=== PATIENT | male | born 1925 | race Caucasian/White ===

== ENCOUNTER 2016-05-29 14:04 | Inpatient (IN) | payer MEDICARE ==
--- NOTE | 2016-05-29 15:01 | ER Document Report ---
ED General - General Stated Complaint: DIFFICULTY BREATHING Notes: This is an 89-year-old male from home where he lives with his , reportedly having cough, altered mental status, decreased by mouth intake over the past several days. Son went to check on him and found him to be in respiratory distress and called EMS. Room air oxygen saturation was 82% initially responded well to nasal cannula oxygen TRAVEL OUTSIDE OF THE [place] IN LAST 30 DAYS: No - Related Data Allergies/Adverse Reactions: No Known Allergies Allergy (Unverified 03/13/15 15:37) Past Medical History - Social History Smoking Status: Unknown if Ever Smoked Frequency of alcohol use: None Drug Abuse: None Lives with: Spouse/Significant other Family History: Reviewed & Not Pertinent Psychiatric Medical History: Reports: Hx Depression Past Surgical History: Reports: Hx Appendectomy, Hx Orthopedic Surgery, Hx Tonsillectomy - Immunizations Hx Diphtheria, Pertussis, Tetanus Vaccination: Yes Review of Systems - Review of Systems Constitutional: Chills, Fever, Malaise EENT: denies: Difficulty swallowing Cardiovascular: denies: Chest pain, Syncope Respiratory: Cough, Short of breath, Sputum Gastrointestinal: Nausea. denies: Abdominal pain, Vomiting Genitourinary: Incontinence. denies: Flank pain Skin: denies: Rash Hematologic/Lymphatic: denies: Swollen glands Neurological/Psychological: denies: Numbness, Tingling Physical Exam - Vital signs Vitals: Resp 30 H 05/29/16 15:02 - General General appearance: Alert In distress: Mild - frail, frequent congested sounding cough, ill appearing - HEENT Head: Normocephalic Conjunctiva: Normal Nasal: Normal Mouth/Lips: Normal Mucous membranes: Dry Pharynx: Normal Neck: Normal - Respiratory Respiratory status: Tachypnea Breath sounds: Decreased air movement, Rhonchi - Cardiovascular Rhythm: Regular, Tachycardia - Abdominal Inspection: Normal Bowel sounds: Normal Tenderness: Nontender - Back Back: Normal - Extremities General upper extremity: No: Edema General lower extremity: No: Edema - Neurological Cognition: Normal Motor strength normal: LUE, RUE, LLE, RLE - Psychological Associated symptoms: Normal affect - Skin Skin Temperature: Warm Skin Moisture: Dry Skin Color: Normal Course - Re-evaluation Re-evalutation: 05/29/16 18:[address] Lyle who will admit, IMCU - Vital Signs Vital signs: Temp Pulse Resp BP Pulse Ox 31 H 130/61 H 96 05/29/16 16:02 05/29/16 16:02 05/29/16 15:53 - Laboratory Result Diagrams: 05/29/16 14:53 05/29/16 14:53 Laboratory results interpreted by me: 05/29/16 05/29/16 05/29/16 14:53 14:53 14:53 WBC 28.7 H RBC 4.01 L Hgb 12.0 L MCHC 31.3 L RDW 14.4 H Seg Neuts % (Manual) 83 H Lymphocytes % (Manual) 8 L Abs Neuts (Manual) 24.7 H Carbonic Acid ABG pCO2 ABG pO2 ABG Total CO2 Potassium 3.2 L BUN 26 H Glucose 132 H Lactic Acid 3.9 H Total Bilirubin 1.7 H ALT 19 L Creatine Kinase 321 H Urine Protein 05/29/16 05/29/16 15:05 15:39 WBC RBC Hgb MCHC RDW Seg Neuts % (Manual) Lymphocytes % (Manual) Abs Neuts (Manual) Carbonic Acid 0.92 L ABG pCO2 30.4 L ABG pO2 65.2 L ABG Total CO2 21.8 L Potassium BUN Glucose Lactic Acid Total Bilirubin ALT Creatine Kinase Urine Protein 30 H Discharge - Discharge Clinical Impression: Sepsis Qualifiers: Sepsis type: sepsis due to unspecified organism Qualified Code(s): A41.9 - Sepsis, unspecified organism Pneumonia Qualifiers: Pneumonia type: due to unspecified organism Laterality: right Lung location: unspecified part of lung Qualified Code(s): J18.9 - Pneumonia, unspecified organism Condition: Fair Disposition: ADMITTED INPATIENT Admitting Provider: Hospitalist Unit Admitted: [facility]
[2016-05-29] MEDS ORDERED: NORMAL SALINE 1000 ML 1,000 ML IV ONE ×2 (15:16→16:06)
[2016-05-29] MEDS ORDERED: CEFTRIAXONE 1 GM/D5W RTU 50 ML IV ONE (15:16)
[2016-05-29 15:31] LABS: HEMATOCRIT 38.4 % (37.9-51.0); HGB HCT DIFFERENCE -2.4; MEAN CORPUSCULAR HGB CONC 31.3 g/dL (32.0-36.0); MEAN CORPUSCULAR VOLUME 96 fl (80-97); RED BLOOD COUNT 4.01 10^6/uL (4.35-5.55); RED CELL DISTRIBUTION WIDTH 14.4 % (11.5-14.0); WHITE BLOOD COUNT 28.7 10^3/uL (4.0-10.5)
[2016-05-29 15:37] LABS: APPEARANCE,URINE CLEAR; BILIRUBIN,URINE NEGATIVE (NEGATIVE); GLUCOSE, URINE NEGATIVE (NEGATIVE); KETONES,URINE NEGATIVE (NEGATIVE); LEUKOCYTE ESTERASE,URINE NEGATIVE (NEGATIVE); NITRITE,URINE NEGATIVE (NEGATIVE); PROTEIN,URINE 30 mg/dL (NEGATIVE); URINE SPECIFIC GRAVITY 1.021; UROBILINOGEN,URINE NEGATIVE mg/dL (<2.0)
[2016-05-29 15:39] LABS: ALANINE AMINOTRANSFERASE 19 U/L (21-72); ALBUMIN 4.3 g/dL (3.5-5.0); ALKALINE PHOSPHATASE 78 U/L (38-126); ANION GAP 17 (5-19); ASPARTATE AMINO TRANSFERASE 29 U/L (17-59); BILIRUBIN,TOTAL 1.7 mg/dL (0.2-1.3); BLOOD UREA NITROGEN 26 mg/dL (7-20); CALCIUM 9.7 mg/dL (8.4-10.2); CARBON DIOXIDE 24 mmol/L (22-30); CHLORIDE 103 mmol/L (98-107); CREATINE KINASE 321 U/L (55-170); CREATININE RESULT 1.11 mg/dL (0.52-1.25); GLUCOSE 132 mg/dL (75-110); POTASSIUM 3.2 mmol/L (3.6-5.0); SODIUM 143.8 mmol/L (137-145); TOTAL PROTEIN 6.9 g/dL (6.3-8.2)
[2016-05-29 15:49] LABS: CREATINE KINASE MB 1.24 ng/mL (<4.55)
--- NOTE | 2016-05-29 15:50 | EKG REPORT ---
SEVERITY:- ABNORMAL ECG - SINUS TACHYCARDIA LAD, CONSIDER LEFT ANTERIOR FASCICULAR BLOCK CONSIDER ANTERIOR INFARCT REPOLARIZATION ABNORMALITY, PROB RATE RELATED : Confirmed by: Raiza Tavarez 29-May-2016 15:49:15
[2016-05-29 15:54] LABS: ARTERIAL BLOOD BASE EXCESS -2.1 mmol/L
[2016-05-29 15:55] LABS: BAND NEUTROPHILS % (MANUAL) 3 % (3-5); BASOPHILS % (MANUAL) 0 % (0-2); EOSINOPHILS % (MANUAL) 0 % (0-6); LYMPHOCYTES % (MANUAL) 8 % (13-45); TOTAL CELLS COUNTED 100
[2016-05-29 15:56] LABS: HYPOCHROMASIA SLIGHT; PLATELET CLUMPS PRESENT
[2016-05-29 15:58] LABS: TROPONIN I < 0.012 ng/mL
[2016-05-29] MEDS ORDERED: AZITHROMYCIN INJ 500 MG VIAL IV ONE (16:27)
[2016-05-29] MEDS ORDERED: ACETAMINOPHEN 325 MG TABLET PO PRN (17:12)
--- NOTE | 2016-05-29 17:28 | PDOC H&P ---
History of Present Illness Admission Date/PCP: 05/29/2016 Dr. Jang Patient complains of: Shortness of breath fever and cough History of Present Illness: VON RANGEL is a 89 year old male from home where he lives with his , reportedly having cough, altered mental status, decreased by mouth intake over the past several days. Son went to check on him and found him to be in respiratory distress and called EMS. Room air oxygen saturation was 82% initially responded well to nasal cannula oxygen Upon evaluation in the ED he was diagnosed of right lower lobe pneumonia, sepsis , hypoxemic respiratory failure, and was subsequently admitted to [facility] under hospitalist service Past Medical History Endocrine Medical History: Reports: Hypothyroidism Musculoskeltal Medical History: Reports: Other - Neuropathy lower extremities and ambulatory dysfunction Psychiatric Medical History: Reports: Depression Past Surgical History Past Surgical History: Reports: Appendectomy, Orthopedic Surgery, Tonsillectomy Social History Information Source: Relative - Wander Weiss Lives with: Spouse/Significant other Smoking Status: Former Smoker - Quit smoking 32 years ago Frequency of Alcohol Use: None Hx Recreational Drug Use: No - Advance Directive Resuscitation Status: Do Not Resuscitate Surrogate healthcare decision maker:: Son Rohith Rangel Family History Family History: Reviewed & Not Pertinent Parental Family History Reviewed: No Children Family History Reviewed: No Sibling(s) Family History Reviewed.: No Medication/Allergy Home Medications: Cephalexin [Keflex] 250 mg PO QID #20 capsule 12/11/15 Duloxetine HCl [Duloxetine HCl] 12/11/15 Gabapentin [Gabapentin] 12/11/15 Levothyroxine Sodium 12/11/15 Tamsulosin HCl [Tamsulosin HCl] 12/11/15 Allergies/Adverse Reactions: No Known Allergies Allergy (Unverified 03/13/15 15:37) Review of Systems Constitutional: PRESENT: anorexia, chills, fever(s) Cardiovascular: ABSENT: as per HPI, chest pain, dyspnea on exertion, edema, orthropnea, palpitations, other Respiratory: PRESENT: cough, dyspnea, sputum Gastrointestinal: PRESENT: other - Anorexia no abdominal pain Genitourinary: ABSENT: as per HPI, difficulty urinating, dysuria, hematuria, nocturia, other Musculoskeletal: PRESENT: other - Ambulatory dysfunction usually walks with a walker Has been laying on the couch for the last couple days Integumentary: ABSENT: as per HPI, diaphoresis, erythema, lesions, pruritus, rash, wounds, other Neurological: PRESENT: confusion - According to son was confused today ;usually extremely sharp alert still drives his car, weakness - Generalized Psychiatric: ABSENT: as per HPI, anxiety, depression, hallucinations, homidical ideation, suicidal ideation, other Endocrine: ABSENT: as per HPI, cold intolerance, flushing, heat intolerance, menstrual abnormalities, polydipsia, polyphagia, polyuria, other Allergic/Immunologic: ABSENT: as per HPI, seasonal rhinorrhea, other Physical Exam Vital Signs: Temp Pulse Resp BP Pulse Ox 31 H 130/61 H 96 05/29/16 16:02 05/29/16 16:02 05/29/16 15:53 General appearance: PRESENT: mild distress, thin Head exam: PRESENT: atraumatic, normocephalic Eye exam: PRESENT: conjunctiva pink, EOMI, PERRLA. ABSENT: scleral icterus Neck exam: ABSENT: carotid bruit, JVD, lymphadenopathy, thyromegaly Respiratory exam: PRESENT: tachypnea. ABSENT: accessory muscle use, prolonged expiratory phas, wheezes Cardiovascular exam: PRESENT: tachycardia - 1 just be just 5 minutes from admitting old man with pneumonia that morning is 89 and he has a white count of 28,000 is not good Pulses: PRESENT: normal dorsalis pedis pul Vascular exam: PRESENT: normal capillary refill - normal. GI/Abdominal exam: PRESENT: normal bowel sounds, soft. ABSENT: distended, guarding, mass, organolmegaly, rebound, tenderness Extremities exam: PRESENT: full ROM. ABSENT: calf tenderness, clubbing, pedal edema Neurological exam: PRESENT: awake, other - Somewhat confused looks very ill Skin exam: ABSENT: abrasion, cyanosis, dry, erythema, intact, jaundice, mottled , normal color, pallor, petechiae, rash, skin tears, urticaria, vesicles, warm, other Results Laboratory Results: 05/29/16 14:53 05/29/16 14:53 05/29/16 05/29/16 05/29/16 14:53 14:53 14:53 WBC 28.7 H RBC 4.01 L Hgb 12.0 L Hct 38.4 MCV 96 MCH 30.0 MCHC 31.3 L RDW 14.4 H Plt Count 219 Seg Neutrophils % Not Reportable Lymphocytes % Not Reportable Monocytes % Not Reportable Eosinophils % Not Reportable Basophils % Not Reportable Absolute Neutrophils Not Reportable Absolute Lymphocytes Not Reportable Absolute Monocytes Not Reportable Absolute Eosinophils Not Reportable Absolute Basophils Not Reportable Carbonic Acid HCO3/H2CO3 Ratio ABG pH ABG pCO2 ABG pO2 ABG HCO3 ABG O2 Saturation ABG Base Excess FiO2 Sodium 143.8 Potassium 3.2 L Chloride 103 Carbon Dioxide 24 Anion Gap 17 BUN 26 H Creatinine 1.11 Est GFR ( Amer) > 60 Est GFR (Non-Af Amer) > 60 Glucose 132 H Lactic Acid 3.9 H Calcium 9.7 Total Bilirubin 1.7 H AST 29 ALT 19 L Alkaline Phosphatase 78 Total Protein 6.9 Albumin 4.3 Urine Color Urine Appearance Urine pH Ur Specific [place] Urine Protein Urine Glucose (UA) Urine Ketones Urine Blood Urine Nitrite Ur Leukocyte Esterase Urine WBC (Auto) Urine RBC (Auto) 05/29/16 05/29/16 15:05 15:39 WBC RBC Hgb Hct MCV MCH MCHC RDW Plt Count Seg Neutrophils % Lymphocytes % Monocytes % Eosinophils % Basophils % Absolute Neutrophils Absolute Lymphocytes Absolute Monocytes Absolute Eosinophils Absolute Basophils Carbonic Acid 0.92 L HCO3/H2CO3 Ratio 22:1 ABG pH 7.45 ABG pCO2 30.4 L ABG pO2 65.2 L ABG HCO3 20.8 ABG O2 Saturation 94.0 ABG Base Excess -2.1 FiO2 2L Sodium Potassium Chloride Carbon Dioxide Anion Gap BUN Creatinine Est GFR ( Amer) Est GFR (Non-Af Amer) Glucose Lactic Acid Calcium Total Bilirubin AST ALT Alkaline Phosphatase Total Protein Albumin Urine Color YELLOW Urine Appearance CLEAR Urine pH 6.0 Ur Specific [place] 1.021 Urine Protein 30 H Urine Glucose (UA) NEGATIVE Urine Ketones NEGATIVE Urine Blood NEGATIVE Urine Nitrite NEGATIVE Ur Leukocyte Esterase NEGATIVE Urine WBC (Auto) 1 Urine RBC (Auto) 1 05/29/16 05/29/16 14:53 14:53 Creatine Kinase 321 H CK-MB (CK-2) 1.24 Troponin I < 0.012 EKG Comments: SINUS TACHYCARDIA [CLAFB] . LAD, CONSIDER LEFT ANTERIOR FASCICULAR BLOCK [AMI41] . CONSIDER ANTERIOR INFARCT [REPRR] . REPOLARIZATION ABNORMALITY Impressions: Chest X-Ray 05/29/16 15:15 IMPRESSION: Patchy changes of the right lung field concerning for infiltrate. Assessment & Plan - Diagnosis (1) Metabolic encephalopathy Is this a current diagnosis for this admission?: YesPlan: With confusion secondary to status sepsis Patient is not agitated Supportive treatment (2) Pneumonia Qualifiers: Pneumonia type: due to unspecified organism Laterality: right Lung location: unspecified part of lung Qualified Code(s): J18.9 - Pneumonia, unspecified organism Is this a current diagnosis for this admission?: YesPlan: Likely to be pneumococcal pneumonia as the white blood count is so high We will get influenza a and B screen (3) Sepsis Qualifiers: Sepsis type: sepsis due to unspecified organism Qualified Code(s): A41.9 - Sepsis, unspecified organism Is this a current diagnosis for this admission?: YesPlan: Secondary to pneumonia ; noted that the white blood count is over 20,000 Patient is not hypotensive Continue hydration with ceftriaxone and azithromycin (4) Acute hypoxemic respiratory failure Is this a current diagnosis for this admission?: YesPlan: Secondary to pneumonia O2 supplementation Mucinex nebs flutter valve if possible - Time Time Spent with patient: Admit to IMCU as inpatient Time Spent: 50 to 70 Minutes - Inpatient Certification Based on my medical assessment, after consideration of the patient's comorbidities, presenting symptoms, or acuity I expect that the services needed warrant INPATIENT care.: Yes I certify that my determination is in accordance with my understanding of Medicare's requirements for reasonable and necessary INPATIENT services [42 CFR 412.3e].: Yes
[2016-05-29] MEDS ORDERED: ENOXAPARIN SODIUM INJ 40 MG/0.4 ML DISP.SYRIN SUBCUT ONE (19:30)
[2016-05-29] MEDS: IPRATROPIUM/ALBUTEROL 0.5-2.5 MG/3 ML AMPUL NEB SCH (20:03)
[2016-05-29] MEDS: GUAIFENESIN 600 MG TABLET.SA PO SCH (20:46)
[2016-05-29] MEDS: FAMOTIDINE 20 MG TABLET PO SCH (20:46)
[2016-05-29] MEDS: NORMAL SALINE 1000 ML 1,000 ML IV PRN (20:47)
[2016-05-30 04:26] LABS: HEMATOCRIT 32.8 % (37.9-51.0); HEMOGLOBIN 10.5 g/dL (13.5-17.0); HGB HCT DIFFERENCE -1.3; MEAN CORPUSCULAR HEMOGLOBIN 30.3 pg (27.0-33.4); MEAN CORPUSCULAR HGB CONC 32.1 g/dL (32.0-36.0); MEAN CORPUSCULAR VOLUME 95 fl (80-97); RED BLOOD COUNT 3.47 10^6/uL (4.35-5.55); WHITE BLOOD COUNT 24.5 10^3/uL (4.0-10.5)
[2016-05-30 04:48] LABS: ALANINE AMINOTRANSFERASE 26 U/L (21-72); ALBUMIN 3.6 g/dL (3.5-5.0); ALKALINE PHOSPHATASE 59 U/L (38-126); ANION GAP 13 (5-19); ASPARTATE AMINO TRANSFERASE 25 U/L (17-59); BILIRUBIN,TOTAL 0.8 mg/dL (0.2-1.3); BLOOD UREA NITROGEN 26 mg/dL (7-20); CALCIUM 8.8 mg/dL (8.4-10.2); CARBON DIOXIDE 24 mmol/L (22-30); CHLORIDE 107 mmol/L (98-107); GLUCOSE 121 mg/dL (75-110); SODIUM 144.1 mmol/L (137-145); TOTAL PROTEIN 5.8 g/dL (6.3-8.2)
[2016-05-30] MEDS: IPRATROPIUM/ALBUTEROL 0.5-2.5 MG/3 ML AMPUL NEB SCH ×4 (08:49→19:54)
[2016-05-30] MEDS: ENOXAPARIN SODIUM INJ 40 MG/0.4 ML DISP.SYRIN SUBCUT SCH (09:06)
[2016-05-30] MEDS: FAMOTIDINE 20 MG TABLET PO SCH ×2 (10:35→22:54)
[2016-05-30] MEDS: GUAIFENESIN 600 MG TABLET.SA PO SCH ×2 (10:35→22:54)
[2016-05-30] MEDS ORDERED: VANCOMYCIN HCL 0 MG in DEXTROSE 5%-WATER 250 ML IV NR (11:15)
[2016-05-30] MEDS: VANCOMYCIN HCL 500 MG in DEXTROSE 5%-WATER 100 ML IV SCH (14:41)
--- NOTE | 2016-05-30 16:13 | PDOC PROGRESS REPORT ---
Subjective Progress Note for:: 05/30/16 Subjective:: Per H&P: "VON RANGEL is a 89 year old male from home where he lives with his , reportedly having cough, altered mental status, decreased by mouth intake over the past several days. Son went to check on him and found him to be in respiratory distress and called EMS. Room air oxygen saturation was 82% initially responded well to nasal cannula oxygen Upon evaluation in the ED he was diagnosed of right lower lobe pneumonia, sepsis , hypoxemic respiratory failure, and was subsequently admitted to [facility] under hospitalist service." Patient's condition improved somewhat but due to the significant hypoxemia on presentation, CTA chest performed and failed to show PE but did confirm bilat, extensive pneumonia. The patient denies chest pain palpitations, still complains of shortness of breath with any movement. ROS: Total 10 systems are reviewed with the patient and positives and negatives noted above and remaining systems are negative. Physical Exam Vital Signs: Temp Pulse Resp BP Pulse Ox 97.3 F 75 18 108/49 L 95 05/30/16 13:46 05/30/16 13:46 05/30/16 13:46 05/30/16 13:46 05/30/16 13:46 Intake & Output 05/29/16 05/30/16 05/31/16 06:59 06:59 06:59 Output Total 300 Balance -300 Weight 74.843 kg 71.6 kg General appearance: PRESENT: no acute distress, well-developed, well-nourished Head exam: PRESENT: atraumatic, normocephalic Eye exam: PRESENT: conjunctiva pink, EOMI, PERRLA. ABSENT: scleral icterus Mouth exam: PRESENT: dry mucosa, neck supple Neck exam: ABSENT: carotid bruit, JVD Respiratory exam: PRESENT: crackles - Diffuse, unlabored. ABSENT: accessory muscle use, rhonchi, wheezes Cardiovascular exam: PRESENT: RRR. ABSENT: diastolic murmur, rubs, systolic murmur Pulses: PRESENT: normal dorsalis pedis pul Vascular exam: PRESENT: normal capillary refill GI/Abdominal exam: PRESENT: normal bowel sounds, soft. ABSENT: distended, guarding, rebound, tenderness Extremities exam: ABSENT: calf tenderness, pedal edema Musculoskeletal exam: PRESENT: full ROM - But generalized weakness 3-4 over 5. Neurological exam: PRESENT: alert, awake, oriented to person, oriented to place , oriented to time, oriented to situation Psychiatric exam: PRESENT: appropriate affect, normal mood Skin exam: PRESENT: dry, warm Results Laboratory Results: 05/30/16 03:26 05/30/16 03:26 05/29/16 05/30/16 05/30/16 20:30 03:26 03:26 WBC 24.5 H RBC 3.47 L Hgb 10.5 L Hct 32.8 L MCV 95 MCH 30.3 MCHC 32.1 RDW 14.0 Plt Count 199 Sodium 144.1 Potassium 4.0 Chloride 107 Carbon Dioxide 24 Anion Gap 13 BUN 26 H Creatinine 1.00 Est GFR ( Amer) > 60 Est GFR (Non-Af Amer) > 60 Glucose 121 H Lactic Acid 3.3 H Calcium 8.8 Total Bilirubin 0.8 AST 25 ALT 26 Alkaline Phosphatase 59 Total Protein 5.8 L Albumin 3.6 TSH 05/30/16 03:26 WBC RBC Hgb Hct MCV MCH MCHC RDW Plt Count Sodium Potassium Chloride Carbon Dioxide Anion Gap BUN Creatinine Est GFR ( Amer) Est GFR (Non-Af Amer) Glucose Lactic Acid Calcium Total Bilirubin AST ALT Alkaline Phosphatase Total Protein Albumin TSH 0.10 L Impressions: Chest X-Ray 05/29/16 15:15 IMPRESSION: Patchy changes of the right lung field concerning for infiltrate. Chest/Abdomen CTA 05/30/16 00:00 IMPRESSION: 1. Focal airspace disease in the periphery of the right upper lobe most consistent with pneumonia. Follow-up is recommended to ensure resolution. 2. Bibasilar infiltrates most consistent with pneumonia or atelectasis. 3. No pulmonary emboli. Assessment & Plan - Diagnosis (1) Acute hypoxemic respiratory failure Is this a current diagnosis for this admission?: YesPlan: Secondary to pneumonia, continue treatment with antibiotics; supplemental oxygen , nebulizers. (2) Metabolic encephalopathy Is this a current diagnosis for this admission?: YesPlan: Secondary to hypoxia, already improved. (3) Pneumonia Qualifiers: Pneumonia type: due to unspecified organism Laterality: bilateral Lung location: unspecified part of lung Qualified Code(s): J18.9 - Pneumonia, unspecified organism Is this a current diagnosis for this admission?: YesPlan: Continue antibiotics and supplemental oxygen. (4) Sepsis Qualifiers: Sepsis type: sepsis due to unspecified organism Qualified Code(s): A41.9 - Sepsis, unspecified organism Is this a current diagnosis for this admission?: YesPlan: Improved (5) Bacteremia Is this a current diagnosis for this admission?: YesPlan: Possible. Repeat cultures to confirm. Add vancomycin while we wait results. - Time Time Spent with patient: 35 or more minutes - No family present. Anticipated discharge: Home Within: within 72 hours
[2016-05-30] MEDS: LACTOBACILLUS ACIDOPHILUS 250 MG TAB PO SCH (17:37)
[2016-05-30] MEDS ORDERED: CEFTRIAXONE 1 GM/D5W RTU 1 GM/50 ML RTUPB IV SCH (18:00)
[2016-05-30] MEDS ORDERED: AZITHROMYCIN 500 MG in DEXTROSE 5%-WATER 250 ML IV SCH (18:00)
[2016-05-31] MEDS ORDERED: VANCOMYCIN HCL INJ 500 MG VIAL ONE (03:21)
[2016-05-31] MEDS: VANCOMYCIN HCL 500 MG in DEXTROSE 5%-WATER 100 ML IV SCH ×2 (03:34→15:47)
[2016-05-31 04:44] LABS: HEMATOCRIT 30.8 % (37.9-51.0); HEMOGLOBIN 9.8 g/dL (13.5-17.0); HGB HCT DIFFERENCE -1.4; MEAN CORPUSCULAR HEMOGLOBIN 30.1 pg (27.0-33.4); MEAN CORPUSCULAR HGB CONC 31.7 g/dL (32.0-36.0); MEAN CORPUSCULAR VOLUME 95 fl (80-97); RED BLOOD COUNT 3.25 10^6/uL (4.35-5.55); RED CELL DISTRIBUTION WIDTH 13.9 % (11.5-14.0); WHITE BLOOD COUNT 26.7 10^3/uL (4.0-10.5)
[2016-05-31 04:54] LABS: ANION GAP 12 (5-19); BLOOD UREA NITROGEN 22 mg/dL (7-20); CALCIUM 8.6 mg/dL (8.4-10.2); CARBON DIOXIDE 24 mmol/L (22-30); CHLORIDE 108 mmol/L (98-107); CREATININE RESULT 0.89 mg/dL (0.52-1.25); GLUCOSE 83 mg/dL (75-110); POTASSIUM 3.6 mmol/L (3.6-5.0); SODIUM 143.8 mmol/L (137-145)
[2016-05-31 05:06] LABS: BAND NEUTROPHILS % (MANUAL) 2 % (3-5); BASOPHILS % (MANUAL) 0 % (0-2); EOSINOPHILS % (MANUAL) 0 % (0-6); LYMPHOCYTES % (MANUAL) 6 % (13-45); TOTAL CELLS COUNTED 100
[2016-05-31 05:08] LABS: RBC MORPHOLOGY COMMENT NORMO-CYTIC/CHROMIC; TOXIC GRANULATION SLIGHT
[2016-05-31] MEDS: IPRATROPIUM/ALBUTEROL 0.5-2.5 MG/3 ML AMPUL NEB SCH ×4 (07:48→20:14)
[2016-05-31] MEDS: ENOXAPARIN SODIUM INJ 40 MG/0.4 ML DISP.SYRIN SUBCUT SCH (07:56)
[2016-05-31] MEDS: NORMAL SALINE 1000 ML 1,000 ML IV PRN (09:43)
[2016-05-31] MEDS: FAMOTIDINE 20 MG TABLET PO SCH ×2 (10:06→22:21)
[2016-05-31] MEDS: GUAIFENESIN 600 MG TABLET.SA PO SCH ×2 (10:06→22:21)
[2016-05-31] MEDS: LACTOBACILLUS ACIDOPHILUS 250 MG TAB PO SCH ×2 (10:06→17:40)
[2016-05-31] MEDS: LORAZEPAM INJ 2 MG/1 ML VIAL IV PRN (10:40)
--- NOTE | 2016-05-31 11:47 | PDOC PROGRESS REPORT ---
Subjective Progress Note for:: 05/31/16 Subjective:: Per H&P: "VON RANGEL is a 89 year old male from home where he lives with his , reportedly having cough, altered mental status, decreased by mouth intake over the past several days. Son went to check on him and found him to be in respiratory distress and called EMS. Room air oxygen saturation was 82% initially responded well to nasal cannula oxygen Upon evaluation in the ED he was diagnosed of right lower lobe pneumonia, sepsis , hypoxemic respiratory failure, and was subsequently admitted to [facility] under hospitalist service." Patient's initial condition improved somewhat but due to the significant hypoxemia on presentation, CTA chest performed and failed to show PE but did confirm bilat, extensive pneumonia. However today he has become combative and quite confused, calling out for his and wondering why she is in therapeutic care of him. He believes he is at home and doesn't understand why we keep telling him he is in the hospital. He continues to try to climb out of bed in spite of gentle verbal and physical redirection. ROS: Unable to review due to confusion. No family at the bedside Physical Exam Vital Signs: Temp Pulse Resp BP Pulse Ox 97.5 F 68 19 118/65 100 05/31/16 07:49 05/31/16 07:49 05/31/16 07:49 05/31/16 07:49 05/31/16 07:49 Intake & Output 05/30/16 05/31/16 06/01/16 06:59 06:59 06:59 Intake Total 1809 Output Total 300 1575 Balance -300 234 Weight 74.843 kg 72.7 kg General appearance: PRESENT: severe distress, well-developed, well-nourished Head exam: PRESENT: atraumatic, normocephalic Eye exam: PRESENT: conjunctiva pink, EOMI, PERRLA. ABSENT: scleral icterus Neck exam: ABSENT: JVD, lymphadenopathy Respiratory exam: PRESENT: rales, rhonchi - Thick wet cough and a barely able to clear secretions, unlabored. ABSENT: accessory muscle use, wheezes Cardiovascular exam: PRESENT: RRR. ABSENT: diastolic murmur, rubs, systolic murmur Pulses: PRESENT: normal radial pulses Vascular exam: PRESENT: normal capillary refill GI/Abdominal exam: PRESENT: normal bowel sounds, soft. ABSENT: tenderness Extremities exam: ABSENT: pedal edema Musculoskeletal exam: PRESENT: full ROM Neurological exam: PRESENT: alert, altered - Speech is clear but he has confused , awake Psychiatric exam: PRESENT: agitated, anxious - Angry Skin exam: PRESENT: dry, warm Results Laboratory Results: 05/31/16 04:02 05/31/16 04:02 05/31/16 05/31/16 04:02 04:02 WBC 26.7 H RBC 3.25 L Hgb 9.8 L Hct 30.8 L MCV 95 MCH 30.1 MCHC 31.7 L RDW 13.9 Plt Count 228 Seg Neutrophils % Not Reportable Lymphocytes % Not Reportable Monocytes % Not Reportable Eosinophils % Not Reportable Basophils % Not Reportable Absolute Neutrophils Not Reportable Absolute Lymphocytes Not Reportable Absolute Monocytes Not Reportable Absolute Eosinophils Not Reportable Absolute Basophils Not Reportable Sodium 143.8 Potassium 3.6 Chloride 108 H Carbon Dioxide 24 Anion Gap 12 BUN 22 H Creatinine 0.89 Est GFR ( Amer) > 60 Est GFR (Non-Af Amer) > 60 Glucose 83 Calcium 8.6 Impressions: Chest X-Ray 05/29/16 15:15 IMPRESSION: Patchy changes of the right lung field concerning for infiltrate. Chest/Abdomen CTA 05/30/16 00:00 IMPRESSION: 1. Focal airspace disease in the periphery of the right upper lobe most consistent with pneumonia. Follow-up is recommended to ensure resolution. 2. Bibasilar infiltrates most consistent with pneumonia or atelectasis. 3. No pulmonary emboli. Assessment & Plan - Diagnosis (1) Acute hypoxemic respiratory failure Is this a current diagnosis for this admission?: YesPlan: Unchanged. Secondary to pneumonia, continue treatment with antibiotics; supplemental oxygen, nebulizers. (2) Metabolic encephalopathy Is this a current diagnosis for this admission?: YesPlan: Secondary to hypoxia and sepsis, worsened. We'll add anxiolytics and may need atypical anti-psychotics to control behaviors and mood. (3) Pneumonia Qualifiers: Pneumonia type: due to unspecified organism Laterality: bilateral Lung location: unspecified part of lung Qualified Code(s): J18.9 - Pneumonia, unspecified organism Is this a current diagnosis for this admission?: YesPlan: Continue triple antibiotics and supplemental oxygen. Day 3 of Rocephin and Zithromax, day 2 of vancomycin (4) Sepsis Qualifiers: Sepsis type: sepsis due to unspecified organism Qualified Code(s): A41.9 - Sepsis, unspecified organism Is this a current diagnosis for this admission?: YesPlan: Unchanged (5) Bacteremia Is this a current diagnosis for this admission?: YesPlan: Initial cultures inconclusive, Repeat cultures to confirm pending. Added vancomycin while we wait results. - Time Time Spent with patient: 35 or more minutes Anticipated discharge: Acute Rehab - Depending on his mental state he may need short stay in rehabilitation due to the severity of his sepsis
[2016-05-31] MEDS ORDERED: HALOPERIDOL LACTATE INJ 5 MG/1 ML VIAL IM PRN (16:56)
[2016-05-31] MEDS ORDERED: HALOPERIDOL LACTATE INJ 5 MG/1 ML VIAL IM ONE (17:30)
[2016-05-31] MEDS ORDERED: LIDOCAINE HCL 1% INJ (FOR 1 GM VIAL) INJ ONE (18:00)
[2016-05-31] MEDS ORDERED: CEFTRIAXONE INJ 1000 MG VIAL IM ONE (18:00)
[2016-05-31] MEDS ORDERED: AZITHROMYCIN 250 MG TABLET PO SCH (18:00)
[2016-06-01 04:51] LABS: HEMATOCRIT 36.2 % (37.9-51.0); HEMOGLOBIN 11.1 g/dL (13.5-17.0); HGB HCT DIFFERENCE -2.9; MEAN CORPUSCULAR HEMOGLOBIN 29.2 pg (27.0-33.4); MEAN CORPUSCULAR HGB CONC 30.8 g/dL (32.0-36.0); MEAN CORPUSCULAR VOLUME 95 fl (80-97); RED BLOOD COUNT 3.81 10^6/uL (4.35-5.55); RED CELL DISTRIBUTION WIDTH 13.4 % (11.5-14.0); WHITE BLOOD COUNT 26.5 10^3/uL (4.0-10.5)
[2016-06-01 05:07] LABS: ANION GAP 15 (5-19); BLOOD UREA NITROGEN 17 mg/dL (7-20); CALCIUM 9.3 mg/dL (8.4-10.2); CARBON DIOXIDE 25 mmol/L (22-30); CHLORIDE 104 mmol/L (98-107); CREATININE RESULT 0.84 mg/dL (0.52-1.25); GLUCOSE 80 mg/dL (75-110); MAGNESIUM 2.4 mg/dL (1.6-2.3); PHOSPHORUS 2.7 mg/dL (2.5-4.5); POTASSIUM 3.7 mmol/L (3.6-5.0); SODIUM 144.4 mmol/L (137-145)
[2016-06-01 05:26] LABS: BASOPHILS % (MANUAL) 0 % (0-2); EOSINOPHILS % (MANUAL) 1 % (0-6); LYMPHOCYTES % (MANUAL) 8 % (13-45); TOTAL CELLS COUNTED 100
[2016-06-01 05:29] LABS: RBC MORPHOLOGY COMMENT NORMO-CYTIC/CHROMIC; TOXIC GRANULATION SLIGHT; TOXIC VACUOLATION PRESENT
[2016-06-01 05:34] LABS: PROTHROMBIN TIME 15.2 SEC (11.4-15.4)
[2016-06-01] MEDS: IPRATROPIUM/ALBUTEROL 0.5-2.5 MG/3 ML AMPUL NEB SCH ×4 (07:55→19:58)
[2016-06-01] MEDS ORDERED: LORAZEPAM INJ 2 MG/1 ML VIAL IM ONE (09:15)
--- NOTE | 2016-06-01 10:56 | PDOC PROGRESS REPORT ---
Subjective Progress Note for:: 06/01/16 Subjective:: Per H&P: "VON RANGEL is a 89 year old male from home where he lives with his , reportedly having cough, altered mental status, decreased by mouth intake over the past several days. Son went to check on him and found him to be in respiratory distress and called EMS. Room air oxygen saturation was 82% initially responded well to nasal cannula oxygen Upon evaluation in the ED he was diagnosed of right lower lobe pneumonia, sepsis , hypoxemic respiratory failure, and was subsequently admitted to [facility] under hospitalist service." Patient's initial condition improved somewhat but due to the significant hypoxemia on presentation, CTA chest performed and failed to show PE but did confirm bilat, extensive pneumonia. Since admission his condition has declined as he has become combative and quite confused/delirious, calling out for his and wondering why she isn't here to care of him. He continues to believe he is at home and doesn't understand why we keep telling him he is in the hospital. He continues to try to climb out of bed in spite of gentle verbal and physical redirection and the IM Haldol dose last night had no effect. He is requiring a sitter and near constant redirection to keep him in bed and safe from falls and pulling at lifelines and devices. He discontinued his IV site last night, unfortunately while vancomycin was infusing resulting in infiltration into the left forearm. Antibiotics were adjusted to either oral or IM dosing last night, Ativan added to his regimen this morning in hopes that we can get a PICC line placed for continued treatment. Furthermore his leukocytosis is not improving and his cultures do not point toward pathogen. He has received Rocephin and Zithromax since his arrival, vancomycin was added but dosing has been irregular due to the patient's cooperation and intermittent lack of IV access, therefore it's difficult to say what pathogen we might be missing but certainly includes MRSA undertreated for the reasons noted above. Other possibilities include drug resistant organisms, Pseudomonas, and fungi. ROS: Unable to review due to confusion. No family at the bedside Physical Exam Vital Signs: Temp Pulse Resp BP Pulse Ox 98.2 F 80 20 128/76 H 97 06/01/16 07:39 06/01/16 07:55 06/01/16 07:55 06/01/16 07:39 06/01/16 07:55 Intake & Output 05/31/16 06/01/16 06/02/16 06:59 06:59 06:59 Intake Total 1809 1400 Output Total 1570 9405 Balance 234 -2125 Weight 72.7 kg 70.4 kg EXAM GENERAL: Moderate distress; well developed, well nourished; no obese; not alert and oriented to person, place, time, or situation HEENT: normocephalic, atraumatic; no conjunctival injection, no scleral icterus ; oral mucosa moist; RESPIRATORY: no accessory muscle use, increased WOB, good air entry bilaterally ; no wheezes, rales, rhonchi; coarse inspiratory crackles CARDIO: no JVD; RRR; no systolic murmur; no tachycardia GI: soft; nondistended; normal bowel sounds; no hepato spleno megaly; no rebound, rigidity, guarding VASCULAR: no carotid bruit; no abdominal bruit; no pallor; 2+ radial, DP pulse ; normal capillary refill EXTREMITIES: no calf tender; no palpable cords in calf; no clubbing, cyanosis , pedal edema PSYCH: Delirious, agitated, restless SKIN: Cool and clammy; no petechiae; no telengectasias; no jaundice; mottling of the knees and heels Results Laboratory Results: 06/01/16 03:54 06/01/16 03:54 06/01/16 06/01/16 03:54 03:54 WBC 26.5 H RBC 3.81 L Hgb 11.1 L Hct 36.2 L MCV 95 MCH 29.2 MCHC 30.8 L RDW 13.4 Plt Count 239 Seg Neutrophils % Not Reportable Lymphocytes % Not Reportable Monocytes % Not Reportable Eosinophils % Not Reportable Basophils % Not Reportable Absolute Neutrophils Not Reportable Absolute Lymphocytes Not Reportable Absolute Monocytes Not Reportable Absolute Eosinophils Not Reportable Absolute Basophils Not Reportable Sodium 144.4 Potassium 3.7 Chloride 104 Carbon Dioxide 25 Anion Gap 15 BUN 17 Creatinine 0.84 Est GFR ( Amer) > 60 Est GFR (Non-Af Amer) > 60 Glucose 80 Calcium 9.3 Phosphorus 2.7 Magnesium 2.4 H Impressions: Chest X-Ray 05/29/16 15:15 IMPRESSION: Patchy changes of the right lung field concerning for infiltrate. Chest/Abdomen CTA 05/30/16 00:00 IMPRESSION: 1. Focal airspace disease in the periphery of the right upper lobe most consistent with pneumonia. Follow-up is recommended to ensure resolution. 2. Bibasilar infiltrates most consistent with pneumonia or atelectasis. 3. No pulmonary emboli. Assessment & Plan - Diagnosis (1) Acute hypoxemic respiratory failure Is this a current diagnosis for this admission?: YesPlan: Improved, requiring less supplemental O2 to maintain adequate oxygenation.. Secondary to pneumonia, continue treatment with antibiotics; supplemental oxygen , nebulizers. (2) Metabolic encephalopathy Is this a current diagnosis for this admission?: YesPlan: Secondary to hypoxia and sepsis, worsened again today. We'll add anxiolytics and may need atypical anti-psychotics to control behaviors and mood. (3) Pneumonia Qualifiers: Pneumonia type: due to unspecified organism Laterality: bilateral Lung location: unspecified part of lung Qualified Code(s): J18.9 - Pneumonia, unspecified organism Is this a current diagnosis for this admission?: YesPlan: Failing current antibiotics, will switch to cefepime Levaquin and continue vancomycin and supplemental oxygen. He received 3d of Rocephin and Zithromax, day 2 of intermittent vancomycin dosing. Send for mycoplasma antibodies. Trend his C-reactive protein and leukocytes. Continue probiotic for C. difficile prophylaxis. PICC line as tolerated for better, consistent IV access. (4) Sepsis Qualifiers: Sepsis type: sepsis due to unspecified organism Qualified Code(s): A41.9 - Sepsis, unspecified organism Is this a current diagnosis for this admission?: YesPlan: Unchanged and continue eating to his encephalopathy. (5) Bacteremia Is this a current diagnosis for this admission?: YesPlan: Initial cultures inconclusive, Repeat cultures to confirm pending. Added vancomycin while we wait results. - Time Time Spent with patient: 35 or more minutes - Plan Summary Plan Summary: Prognosis guarded. This degree of sepsis and resulting encephalopathy with the severity of his pneumonia seen on CT scan carries a very high morbidity and mortality.
[2016-06-01] MEDS: GUAIFENESIN 600 MG TABLET.SA PO SCH ×2 (10:59→21:03)
[2016-06-01] MEDS: LACTOBACILLUS ACIDOPHILUS 250 MG TAB PO SCH ×2 (11:00→16:41)
[2016-06-01] MEDS: FAMOTIDINE 20 MG TABLET PO SCH ×2 (11:00→21:03)
[2016-06-01] MEDS: LORAZEPAM INJ 2 MG/1 ML VIAL IV PRN ×2 (11:03→21:04)
[2016-06-01] MEDS: ENOXAPARIN SODIUM INJ 40 MG/0.4 ML DISP.SYRIN SUBCUT SCH (11:04)
[2016-06-01] MEDS ORDERED: CEFEPIME HCL 2 GM in DEXTROSE 5%-WATER 50 ML IV ONE (11:30)
[2016-06-01] MEDS ORDERED: LEVOFLOXACIN 750 MG/D5W RTU 750 MG/150 ML RTUPB IV ONE (11:30)
[2016-06-01] MEDS ORDERED: LORAZEPAM INJ 2 MG/1 ML VIAL ONE (12:56)
[2016-06-01 15:22] LABS: ARTERIAL BLOOD BASE EXCESS 0.6 mmol/L; ARTERIAL BLOOD O2 SATURATION 94.3 % (94-98)
[2016-06-01 15:26] LABS: TROUGH DRAW TIME 1450
[2016-06-01] MEDS: VANCOMYCIN HCL 750 MG in DEXTROSE 5%-WATER 250 ML IV SCH (15:28)
[2016-06-01] MEDS: LEVOFLOXACIN 750 MG/D5W RTU 750 MG/150 ML RTUPB IV SCH (16:41)
[2016-06-01] MEDS: CEFEPIME HCL 2 GM in DEXTROSE 5%-WATER 50 ML IV SCH (21:03)
[2016-06-01] MEDS ORDERED: CEFEPIME 2 GM/D5W RTU 2 GM/50 ML RTUPB IV SCH (22:00)
[2016-06-01 22:58] LABS: CREATININE RESULT 0.85 mg/dL (0.52-1.25)
[2016-06-02] MEDS: VANCOMYCIN HCL 750 MG in DEXTROSE 5%-WATER 250 ML IV SCH ×2 (04:02→17:01)
[2016-06-02] MEDS: LORAZEPAM INJ 2 MG/1 ML VIAL IV PRN (04:11)
[2016-06-02] MEDS ORDERED: NORMAL SALINE 1000 ML 250 ML IV ONE (04:29)
[2016-06-02] MEDS ORDERED: NORMAL SALINE 1000 ML 500 ML IV ONE ×2 (05:12→06:31)
[2016-06-02 05:48] LABS: HEMATOCRIT 36.4 % (37.9-51.0); HEMOGLOBIN 11.4 g/dL (13.5-17.0); HGB HCT DIFFERENCE -2.2; MEAN CORPUSCULAR HEMOGLOBIN 29.6 pg (27.0-33.4); MEAN CORPUSCULAR HGB CONC 31.4 g/dL (32.0-36.0); MEAN CORPUSCULAR VOLUME 94 fl (80-97); RED BLOOD COUNT 3.86 10^6/uL (4.35-5.55); RED CELL DISTRIBUTION WIDTH 13.8 % (11.5-14.0); WHITE BLOOD COUNT 28.9 10^3/uL (4.0-10.5)
[2016-06-02 06:10] LABS: ALANINE AMINOTRANSFERASE 53 U/L (21-72); ALBUMIN 3.4 g/dL (3.5-5.0); ALKALINE PHOSPHATASE 69 U/L (38-126); ANION GAP 14 (5-19); ASPARTATE AMINO TRANSFERASE 92 U/L (17-59); BILIRUBIN,TOTAL 0.9 mg/dL (0.2-1.3); BLOOD UREA NITROGEN 28 mg/dL (7-20); CALCIUM 8.7 mg/dL (8.4-10.2); CARBON DIOXIDE 26 mmol/L (22-30); CHLORIDE 103 mmol/L (98-107); CREATININE RESULT 1.04 mg/dL (0.52-1.25); GLUCOSE 158 mg/dL (75-110); MAGNESIUM 2.4 mg/dL (1.6-2.3); PHOSPHORUS 2.8 mg/dL (2.5-4.5); POTASSIUM 3.5 mmol/L (3.6-5.0); SODIUM 142.8 mmol/L (137-145); TOTAL PROTEIN 5.8 g/dL (6.3-8.2)
[2016-06-02 06:19] LABS: BAND NEUTROPHILS % (MANUAL) 2 % (3-5); BASOPHILS % (MANUAL) 0 % (0-2); EOSINOPHILS % (MANUAL) 0 % (0-6); LYMPHOCYTES % (MANUAL) 8 % (13-45); TOTAL CELLS COUNTED 100
[2016-06-02 06:23] LABS: RBC MORPHOLOGY COMMENT NORMO-CYTIC/CHROMIC; TOXIC GRANULATION SLIGHT
[2016-06-02 06:26] LABS: C-REACTIVE PROTEIN 158.4 mg/L (<10.0)
[2016-06-02] MEDS ORDERED: NORMAL SALINE 1000 ML 1,000 ML IV ONE (07:32)
[2016-06-02] MEDS: IPRATROPIUM/ALBUTEROL 0.5-2.5 MG/3 ML AMPUL NEB SCH ×4 (08:03→20:00)
[2016-06-02] MEDS: ENOXAPARIN SODIUM INJ 40 MG/0.4 ML DISP.SYRIN SUBCUT SCH (09:50)
[2016-06-02] MEDS: CEFEPIME HCL 2 GM in DEXTROSE 5%-WATER 50 ML IV SCH ×2 (09:51→22:01)
[2016-06-02] MEDS: LACTOBACILLUS ACIDOPHILUS 250 MG TAB PO SCH (09:54)
[2016-06-02] MEDS: GUAIFENESIN 600 MG TABLET.SA PO SCH (09:54)
[2016-06-02] MEDS: FAMOTIDINE 20 MG TABLET PO SCH (09:54)
[2016-06-02 10:54] LABS: ARTERIAL BLOOD BASE EXCESS -2.2 mmol/L; ARTERIAL BLOOD O2 SATURATION 94.8 % (94-98)
--- NOTE | 2016-06-02 11:14 | PDOC PROGRESS REPORT ---
Subjective Progress Note for:: 06/02/16 Subjective:: Per H&P: "VON RANGEL is a 89 year old male from home where he lives with his , reportedly having cough, altered mental status, decreased by mouth intake over the past several days. Son went to check on him and found him to be in respiratory distress and called EMS. Room air oxygen saturation was 82% initially responded well to nasal cannula oxygen Upon evaluation in the ED he was diagnosed of right lower lobe pneumonia, sepsis , hypoxemic respiratory failure, and was subsequently admitted to [facility] under hospitalist service." Patient's initial condition improved somewhat but due to the significant hypoxemia on presentation, CTA chest performed and failed to show PE but did confirm bilat, extensive pneumonia. Since admission his condition has declined as he has become combative and quite confused/delirious, calling out for his and wondering why she isn't here to care of him. He continues to believe he is at home and doesn't understand why we keep telling him he is in the hospital. He continues to try to climb out of bed in spite of gentle verbal and physical redirection and IM Haldol dose had no effect. He is requiring a sitter and near constant redirection to keep him in bed and safe from falls and pulling at lifelines and devices. He discontinued his IV site 05/31/2016, unfortunately while vancomycin was infusing resulting in infiltration into the left forearm. Antibiotics were adjusted to either oral or IM dosing temporarily , Ativan added to his regimen 06/01/2016 to allow a PICC line placement with success. Furthermore his leukocytosis is not improving and his cultures do not point toward pathogen. He has received Rocephin and Zithromax since his arrival, vancomycin was added but dosing has been irregular due to the patient's cooperation and intermittent lack of IV access, therefore it's difficult to say what pathogen we might be missing but certainly includes MRSA undertreated for the reasons noted above. Other possibilities include drug resistant organisms, Pseudomonas, and fungi. Antibiotic coverage broadened 06/01/2016 to cefepime, Levaquin and continue vancomycin. 06/02/2016 his condition continues to deteriorate. This morning he is hemodynamically unstable dropping his blood pressure into the 80s with rising heart rate into the 140s and sustained sinus tachycardia. His mental status and no different, he remains restless, non-cooperative and agitated requiring soft wrist restraints, gloves and additional dose of Ativan. I spoke with his son by telephone at [phone] who confirmed the patient's wishes to be a DO NOT RESUSCITATE, states his father's quality of life has declined rapidly over the recent months and that he would not want aggressive, invasive life-sustaining measures if his condition were to decline further. He is agreeable to continuing antibiotic therapy, IV fluids, vasopressors and even BiPAP support if needed. He does not want the patient transferred to a tertiary care center, which I offered for pulmonology and critical care consult. I suggested perhaps bronchoscopy would be worthwhile but his chances of requiring intubation and mechanical ventilation post procedure were quite high, as a result he does not wish to pursue these measures. ROS: Unable to review due to confusion. Physical Exam Vital Signs: Temp Pulse Resp BP Pulse Ox 97.4 F 114 H 24 H 88/66 L 93 06/02/16 07:33 06/02/16 08:03 06/02/16 08:03 06/02/16 07:33 06/02/16 08:03 Intake & Output 06/01/16 06/02/16 06/03/16 06:59 06:59 06:59 Intake Total 1400 1650 Output Total 3525 650 Balance -2125 1000 Weight 70.4 kg 70.4 kg EXAM GENERAL: Restless and agitated; well developed, well nourished; no obese; lethargic and not oriented to person, place, time, situation HEENT: normocephalic, atraumatic; no conjunctival injection, no scleral icterus ; oral mucosa dry; RESPIRATORY: accessory abdominal muscle use, increased WOB, good air entry bilaterally; no wheezes, rales, rhonchi but some inspiratory crackles bilateral anteriorly CARDIO: no JVD; RRR; soft systolic murmur; tachycardia, appears to be sinus GI: soft; nondistended; normal bowel sounds; no hepato spleno megaly; no rebound, rigidity, guarding; no grimace with palpation VASCULAR: no carotid bruit; no abdominal bruit; no pallor; 2+ radial, DP pulse ; normal capillary refill EXTREMITIES: no calf tender; no palpable cords in calf; no clubbing, cyanosis , trace pedal edema PSYCH: Agitated, noncooperative SKIN: warm; moist, pale; no petechiae; no telengectasias; no jaundice; no rash MSK: Moves all 4 extremities spontaneously but will not follow commands Results Laboratory Results: 06/02/16 05:20 06/02/16 05:20 06/01/16 06/01/16 06/02/16 14:50 15:10 05:20 WBC RBC Hgb Hct MCV MCH MCHC RDW Plt Count Seg Neutrophils % Lymphocytes % Monocytes % Eosinophils % Basophils % Absolute Neutrophils Absolute Lymphocytes Absolute Monocytes Absolute Eosinophils Absolute Basophils Carbonic Acid 1.17 HCO3/H2CO3 Ratio 21:1 ABG pH 7.42 ABG pCO2 39.0 ABG pO2 69.2 L ABG HCO3 24.9 ABG O2 Saturation 94.3 ABG Base Excess 0.6 FiO2 2L Sodium 142.8 Potassium 3.5 L Chloride 103 Carbon Dioxide 26 Anion Gap 14 BUN 28 H Creatinine 0.85 1.04 Est GFR ( Amer) > 60 > 60 Est GFR (Non-Af Amer) > 60 > 60 Glucose 158 H Calcium 8.7 Phosphorus 2.8 Magnesium 2.4 H Total Bilirubin 0.9 AST 92 H ALT 53 Alkaline Phosphatase 69 Ammonia C-Reactive Protein 158.4 H Total Protein 5.8 L Albumin 3.4 L Vitamin B12 > 1000.0 H TSH 06/02/16 06/02/16 06/02/16 05:20 05:20 05:20 WBC 28.9 H RBC 3.86 L Hgb 11.4 L Hct 36.4 L MCV 94 MCH 29.6 MCHC 31.4 L RDW 13.8 Plt Count 287 Seg Neutrophils % Not Reportable Lymphocytes % Not Reportable Monocytes % Not Reportable Eosinophils % Not Reportable Basophils % Not Reportable Absolute Neutrophils Not Reportable Absolute Lymphocytes Not Reportable Absolute Monocytes Not Reportable Absolute Eosinophils Not Reportable Absolute Basophils Not Reportable Carbonic Acid HCO3/H2CO3 Ratio ABG pH ABG pCO2 ABG pO2 ABG HCO3 ABG O2 Saturation ABG Base Excess FiO2 Sodium Potassium Chloride Carbon Dioxide Anion Gap BUN Creatinine Est GFR ( Amer) Est GFR (Non-Af Amer) Glucose Calcium Phosphorus Magnesium Total Bilirubin AST ALT Alkaline Phosphatase Ammonia < 8.7 L C-Reactive Protein Total Protein Albumin Vitamin B12 TSH 1.83 Impressions: Chest/Abdomen CTA 05/30/16 00:00 IMPRESSION: 1. Focal airspace disease in the periphery of the right upper lobe most consistent with pneumonia. Follow-up is recommended to ensure resolution. 2. Bibasilar infiltrates most consistent with pneumonia or atelectasis. 3. No pulmonary emboli. Guidance Fluoroscopy 06/01/16 00:00 IMPRESSION: SUCCESSFUL PLACEMENT OF A 5 FR DUAL LUMEN 29 CM PICC IN THE right basilic VEIN. Interventional Vascular Procedure 06/01/16 00:00 IMPRESSION: SUCCESSFUL PLACEMENT OF A 5 FR DUAL LUMEN 29 CM PICC IN THE right basilic VEIN. PICC Line Insertion 06/01/16 08:00 IMPRESSION: SUCCESSFUL PLACEMENT OF A 5 FR DUAL LUMEN 29 CM PICC IN THE right basilic VEIN. Chest X-Ray 06/02/16 00:00 IMPRESSION: Pulmonary vascular prominence Patchy bilateral airspace disease edema versus pneumonia Assessment & Plan - Diagnosis (1) Acute hypoxemic respiratory failure Is this a current diagnosis for this admission?: YesPlan: Worsened and now in respiratory distress due to Secondary to pneumonia, continue treatment with triple antibiotics; supplemental oxygen, nebulizers. (2) Metabolic encephalopathy Is this a current diagnosis for this admission?: YesPlan: Secondary to hypoxia and sepsis, worsened again today. Continue low-dose anxiolytics and add atypical anti-psychotics to control behaviors and mood if needed. Check CT of the head to rule out intracranial hemorrhage, subacute stroke, etc. once condition stabilizes. (3) Pneumonia Qualifiers: Pneumonia type: due to unspecified organism Laterality: bilateral Lung location: unspecified part of lung Qualified Code(s): J18.9 - Pneumonia, unspecified organism Is this a current diagnosis for this admission?: YesPlan: Failed Rocephin and Zithromax switched to cefepime Levaquin and continue vancomycin with worsening infiltrate seen on today's chest x-ray. He received 3d of Rocephin and Zithromax, day 2 of intermittent vancomycin dosing. Send for mycoplasma antibodies. Trend his C-reactive protein and leukocytes. Continue probiotic for C. difficile prophylaxis. PICC line as tolerated for better, consistent IV access. (4) Sepsis Qualifiers: Sepsis type: sepsis due to unspecified organism Qualified Code(s): A41.9 - Sepsis, unspecified organism Is this a current diagnosis for this admission?: YesPlan: Worsened, now with sustained tachycardia and shock. Transfer to ICU for more aggressive fluid resuscitation and continue treatment, including vasopressors if needed, and the BiPAP for respiratory distress if needed. (5) Bacteremia Is this a current diagnosis for this admission?: YesPlan: Initial cultures with strep mitis, Repeat cultures negative implying probably a contaminant. - Time Time Spent with patient: 35 or more minutes - Plan Summary Plan Summary: Overall poor prognosis, given worsening condition and seemingly failing broad spectrum antibiotics and other supportive measures his risk for significant morbidity or mortality continues to increase.
--- NOTE | 2016-06-02 12:47 | EKG REPORT ---
SEVERITY:- ABNORMAL ECG - SINUS TACHYCARDIA VENTRICULAR PREMATURE COMPLEX FIRST DEGREE AV BLOCK LAD, CONSIDER LEFT ANTERIOR FASCICULAR BLOCK CONSIDER ANTERIOR INFARCT MINIMAL ST DEPRESSION : Confirmed by: Rosalind Encinas MD 02-Jun-2016 12:46:31
[2016-06-02] MEDS: 1/2 NORMAL SALINE 1,000 ML IV PRN (14:01)
[2016-06-02] MEDS ORDERED: LORAZEPAM INJ 2 MG/1 ML VIAL IV PRN (14:39)
[2016-06-02] MEDS: LEVOFLOXACIN 750 MG/D5W RTU 750 MG/150 ML RTUPB IV SCH (18:45)
[2016-06-03] MEDS: 1/2 NORMAL SALINE 1,000 ML IV PRN ×2 (01:47→13:58)
[2016-06-03] MEDS: VANCOMYCIN HCL 750 MG in DEXTROSE 5%-WATER 250 ML IV SCH ×2 (04:44→16:09)
[2016-06-03 05:19] LABS: HEMATOCRIT 34.3 % (37.9-51.0); HEMOGLOBIN 11.3 g/dL (13.5-17.0); HGB HCT DIFFERENCE -0.4; MEAN CORPUSCULAR HEMOGLOBIN 30.9 pg (27.0-33.4); MEAN CORPUSCULAR HGB CONC 33.1 g/dL (32.0-36.0); MEAN CORPUSCULAR VOLUME 94 fl (80-97); RED BLOOD COUNT 3.67 10^6/uL (4.35-5.55); RED CELL DISTRIBUTION WIDTH 13.7 % (11.5-14.0)
[2016-06-03 05:35] LABS: ALANINE AMINOTRANSFERASE 58 U/L (21-72); ALBUMIN 2.7 g/dL (3.5-5.0); ALKALINE PHOSPHATASE 58 U/L (38-126); ANION GAP 10 (5-19); ASPARTATE AMINO TRANSFERASE 87 U/L (17-59); BILIRUBIN,TOTAL 0.8 mg/dL (0.2-1.3); BLOOD UREA NITROGEN 17 mg/dL (7-20); C-REACTIVE PROTEIN 63.5 mg/L (<10.0); CALCIUM 8.2 mg/dL (8.4-10.2); CARBON DIOXIDE 25 mmol/L (22-30); CHLORIDE 103 mmol/L (98-107); CREATININE RESULT 0.83 mg/dL (0.52-1.25); GLUCOSE 90 mg/dL (75-110); MAGNESIUM 2.2 mg/dL (1.6-2.3); PHOSPHORUS 1.7 mg/dL (2.5-4.5); POTASSIUM 3.4 mmol/L (3.6-5.0); SODIUM 138.4 mmol/L (137-145); TOTAL PROTEIN 5.4 g/dL (6.3-8.2)
[2016-06-03 05:38] LABS: WHITE BLOOD COUNT 32.7 10^3/uL (4.0-10.5)
[2016-06-03 05:41] LABS: BASOPHILS % (MANUAL) 0 % (0-2); EOSINOPHILS % (MANUAL) 0 % (0-6); LYMPHOCYTES % (MANUAL) 9 % (13-45); TOTAL CELLS COUNTED 100
[2016-06-03 05:45] LABS: RBC MORPHOLOGY COMMENT NORMO-CYTIC/CHROMIC; TOXIC VACUOLATION PRESENT
[2016-06-03] MEDS: IPRATROPIUM/ALBUTEROL 0.5-2.5 MG/3 ML AMPUL NEB SCH ×4 (08:05→20:50)
[2016-06-03] MEDS: ENOXAPARIN SODIUM INJ 40 MG/0.4 ML DISP.SYRIN SUBCUT SCH (09:39)
[2016-06-03] MEDS: CEFEPIME HCL 2 GM in DEXTROSE 5%-WATER 50 ML IV SCH ×2 (09:39→21:39)
[2016-06-03] MEDS ORDERED: FLUCONAZOLE 400 MG/NS RTU 400 MG/200 ML RTUPB IV ONE (13:00)
[2016-06-03] MEDS ORDERED: POTASSIUM PHOS,M-BASIC-D-BASIC 20 MMOL in NORMAL SALINE 500 ML IV ONE (13:00)
--- NOTE | 2016-06-03 13:48 | PDOC PROGRESS REPORT ---
Subjective Progress Note for:: 06/03/16 Subjective:: Per H&P: "VON RAGNEL is a 89 year old male from home where he lives with his , reportedly having cough, altered mental status, decreased by mouth intake over the past several days. Son went to check on him and found him to be in respiratory distress and called EMS. Room air oxygen saturation was 82% initially responded well to nasal cannula oxygen Upon evaluation in the ED he was diagnosed of right lower lobe pneumonia, sepsis , hypoxemic respiratory failure, and was subsequently admitted to [facility] under hospitalist service." Patient's initial condition improved somewhat but due to the significant hypoxemia on presentation, CTA chest performed and failed to show PE but did confirm bilat, extensive pneumonia. Since admission his condition has declined as he has become combative and quite confused/delirious, calling out for his and wondering why she isn't here to care of him. He continues to believe he is at home and doesn't understand why we keep telling him he is in the hospital. He continued to try to climb out of bed in spite of gentle verbal and physical redirection and IM Haldol dose had no effect. He required a sitter and near constant redirection to keep him in bed and safe from falls and pulling at lifelines and devices. He discontinued his IV site 05/31/2016, unfortunately while vancomycin was infusing resulting in infiltration into the left forearm. Antibiotics were adjusted to either oral or IM dosing temporarily , Ativan added to his regimen 06/01/2016 to allow a PICC line placement with success. Furthermore his leukocytosis is not improving and his cultures do not point toward pathogen. He has received Rocephin and Zithromax since his arrival, vancomycin was added but dosing has been irregular due to the patient's cooperation and intermittent lack of IV access, therefore it's difficult to say what pathogen we might have missed but certainly included MRSA undertreated for the reasons noted above. Other possibilities include drug resistant organisms, Pseudomonas, and fungi. Antibiotic coverage broadened 06/01/2016 to cefepime, Levaquin and continue vancomycin. Diflucan added 06/03/2018 06/02/2016 his condition deteriorated further. He became hemodynamically unstable dropping his blood pressure into the 80s with rising heart rate into the 140s and sustained sinus tachycardia. His mental status was no different, he remains restless, non-cooperative and agitated requiring soft wrist restraints, gloves and additional dose of Ativan. I spoke with his son by telephone at [phone] who confirmed the patient's wishes to be a DO NOT RESUSCITATE, states his father's quality of life has declined rapidly over the recent months and that he would not want aggressive, invasive life-sustaining measures if his condition were to decline further. He is agreeable to continuing antibiotic therapy, IV fluids, vasopressors and even BiPAP support if needed. He does not want the patient transferred to a tertiary care center, which I offered for pulmonology and critical care consult. I suggested perhaps bronchoscopy would be worthwhile but his chances of requiring intubation and mechanical ventilation post procedure were quite high, as a result he does not wish to pursue these measures. ROS: Unable to review due to confusion. Physical Exam Vital Signs: Temp Pulse Resp BP Pulse Ox 98 F 103 H 25 H 133/76 H 98 06/03/16 12:00 06/03/16 08:05 06/03/16 12:01 06/03/16 12:00 06/03/16 12:01 Intake & Output 06/02/16 06/03/16 06/04/16 06:59 06:59 06:59 Intake Total 1650 2794 Output Total 650 1570 675 Balance 1000 1224 -675 Weight 70.4 kg 75.5 kg EXAM GENERAL: Restless; well developed, well nourished; no obese; lethargic and nonverbal; tolerating BiPAP HEENT: normocephalic, atraumatic; no conjunctival injection, no scleral icterus ; oral mucosa dry; RESPIRATORY: accessory abdominal muscle use, increased WOB, good air entry bilaterally; no wheezes, rales, rhonchi but worsening inspiratory crackles bilateral anteriorly CARDIO: no JVD; RRR; soft systolic murmur; tachycardia, appears to be sinus GI: soft; nondistended; normal bowel sounds; no hepato spleno megaly; no rebound, rigidity, guarding; no grimace with palpation VASCULAR: no carotid bruit; no abdominal bruit; no pallor; 2+ radial, DP pulse ; normal capillary refill EXTREMITIES: no calf tender; no palpable cords in calf; no clubbing, cyanosis , trace pedal edema PSYCH: Agitated with exam and nursing intervention, will not follow commands SKIN: warm; moist, pale; no petechiae; no telengectasias; no jaundice; no rash MSK: Moves all 4 extremities spontaneously but will not follow commands Results Laboratory Results: 06/03/16 04:52 06/03/16 04:52 06/03/16 06/03/16 06/03/16 04:52 04:52 04:52 WBC 32.7 H* RBC 3.67 L Hgb 11.3 L Hct 34.3 L MCV 94 MCH 30.9 MCHC 33.1 RDW 13.7 Plt Count 290 Seg Neutrophils % Not Reportable Lymphocytes % Not Reportable Monocytes % Not Reportable Eosinophils % Not Reportable Basophils % Not Reportable Absolute Neutrophils Not Reportable Absolute Lymphocytes Not Reportable Absolute Monocytes Not Reportable Absolute Eosinophils Not Reportable Absolute Basophils Not Reportable Sodium 138.4 Potassium 3.4 L Chloride 103 Carbon Dioxide 25 Anion Gap 10 BUN 17 Creatinine 0.83 Est GFR ( Amer) > 60 Est GFR (Non-Af Amer) > 60 Glucose 90 Lactic Acid 1.2 Calcium 8.2 L Phosphorus 1.7 L Magnesium 2.2 Total Bilirubin 0.8 AST 87 H ALT 58 Alkaline Phosphatase 58 C-Reactive Protein 63.5 H Total Protein 5.4 L Albumin 2.7 L Impressions: Chest/Abdomen CTA 05/30/16 00:00 IMPRESSION: 1. Focal airspace disease in the periphery of the right upper lobe most consistent with pneumonia. Follow-up is recommended to ensure resolution. 2. Bibasilar infiltrates most consistent with pneumonia or atelectasis. 3. No pulmonary emboli. Guidance Fluoroscopy 06/01/16 00:00 IMPRESSION: SUCCESSFUL PLACEMENT OF A 5 FR DUAL LUMEN 29 CM PICC IN THE right basilic VEIN. Interventional Vascular Procedure 06/01/16 00:00 IMPRESSION: SUCCESSFUL PLACEMENT OF A 5 FR DUAL LUMEN 29 CM PICC IN THE right basilic VEIN. PICC Line Insertion 06/01/16 08:00 IMPRESSION: SUCCESSFUL PLACEMENT OF A 5 FR DUAL LUMEN 29 CM PICC IN THE right basilic VEIN. Chest X-Ray 06/02/16 00:00 IMPRESSION: Pulmonary vascular prominence Patchy bilateral airspace disease edema versus pneumonia Head CT 06/02/16 00:00 IMPRESSION: Very limited study. No acute findings Assessment & Plan - Diagnosis (1) Acute hypoxemic respiratory failure Is this a current diagnosis for this admission?: YesPlan: Worsened due to pneumonia, continue treatment with triple antibiotics; BiPAP for increased work of breathing, supplemental oxygen, nebulizers. (2) Metabolic encephalopathy Is this a current diagnosis for this admission?: YesPlan: Secondary to hypoxia and sepsis, unchanged today. Continue low-dose anxiolytics and add atypical anti-psychotics to control behaviors and mood if needed. CT of the head ruled out intracranial hemorrhage, subacute stroke, etc. but was difficult study due to motion artifact. (3) Pneumonia Qualifiers: Pneumonia type: due to unspecified organism Laterality: bilateral Lung location: unspecified part of lung Qualified Code(s): J18.9 - Pneumonia, unspecified organism Is this a current diagnosis for this admission?: YesPlan: Failed Rocephin and Zithromax 06/02/2016 switched to cefepime Levaquin and continued vancomycin with worsening infiltrate seen on chest x-ray and worsening leukocytosis added Diflucan 06/03/2016. He received 3d of Rocephin and Zithromax. Send for mycoplasma antibodies, EBV titers and screen for influenza A and B.. Trend his C-reactive protein and leukocytes. Continue probiotic for C. difficile prophylaxis. PICC line as tolerated for better, consistent IV access. (4) Sepsis Qualifiers: Sepsis type: sepsis due to unspecified organism Qualified Code(s): A41.9 - Sepsis, unspecified organism Is this a current diagnosis for this admission?: YesPlan: Severe with endorgan damage (encephalopathy), shock and tachycardia improved with aggressive fluid resuscitation. continue supportive care, and include vasopressors if needed, and the BiPAP for respiratory distress if needed. (5) Bacteremia Is this a current diagnosis for this admission?: NoPlan: Initial cultures with strep mitis, Repeat cultures negative implying probably a contaminant. (6) Hypokalemia Is this a current diagnosis for this admission?: YesPlan: Replace and monitor (7) Hypophosphatemia Is this a current diagnosis for this admission?: Yes - Time Time Spent with patient: 35 or more minutes - Plan Summary Plan Summary: Prognosis worsening. Remains at high risk for significant morbidity and mortality due to the severity of his sepsis.
[2016-06-03] MEDS: LEVOFLOXACIN 750 MG/D5W RTU 750 MG/150 ML RTUPB IV SCH (17:55)
[2016-06-04] MEDS: 1/2 NORMAL SALINE 1,000 ML IV PRN (03:09)
[2016-06-04 04:20] LABS: HEMATOCRIT 34.9 % (37.9-51.0); HEMOGLOBIN 11.2 g/dL (13.5-17.0); HGB HCT DIFFERENCE -1.3; MEAN CORPUSCULAR HGB CONC 32.2 g/dL (32.0-36.0); MEAN CORPUSCULAR VOLUME 93 fl (80-97); RED BLOOD COUNT 3.74 10^6/uL (4.35-5.55); RED CELL DISTRIBUTION WIDTH 13.5 % (11.5-14.0); WHITE BLOOD COUNT 26.7 10^3/uL (4.0-10.5)
[2016-06-04 04:30] LABS: ANION GAP 10 (5-19); BLOOD UREA NITROGEN 14 mg/dL (7-20); CALCIUM 8.2 mg/dL (8.4-10.2); CARBON DIOXIDE 26 mmol/L (22-30); CHLORIDE 99 mmol/L (98-107); CREATININE RESULT 0.73 mg/dL (0.52-1.25); MAGNESIUM 2.1 mg/dL (1.6-2.3); PHOSPHORUS 2.6 mg/dL (2.5-4.5); POTASSIUM 3.6 mmol/L (3.6-5.0); SODIUM 135.4 mmol/L (137-145)
[2016-06-04 04:31] LABS: GLUCOSE 89 mg/dL (75-110)
[2016-06-04 04:44] LABS: BASOPHILS % (MANUAL) 0 % (0-2); EOSINOPHILS % (MANUAL) 0 % (0-6); LYMPHOCYTES % (MANUAL) 8 % (13-45); TOTAL CELLS COUNTED 100
[2016-06-04 04:46] LABS: RBC MORPHOLOGY COMMENT NORMO-CYTIC/CHROMIC; TOXIC GRANULATION 1+
[2016-06-04 04:54] LABS: PLATELET CLUMPS PRESENT
[2016-06-04 05:03] LABS: CREATININE RESULT 0.73 mg/dL (0.52-1.25)
[2016-06-04] MEDS: VANCOMYCIN HCL 750 MG in DEXTROSE 5%-WATER 250 ML IV SCH ×2 (05:14→18:50)
[2016-06-04] MEDS: IPRATROPIUM/ALBUTEROL 0.5-2.5 MG/3 ML AMPUL NEB SCH ×4 (08:28→20:19)
[2016-06-04] MEDS ORDERED: ALTEPLASE INJ 2 MG VIAL (CATH CLEARANCE) IV ONE ×2 (09:09→09:10)
[2016-06-04] MEDS: CEFEPIME HCL 2 GM in DEXTROSE 5%-WATER 50 ML IV SCH ×2 (10:50→21:35)
[2016-06-04] MEDS ORDERED: 1/2 NORMAL SALINE 1,000 ML IV PRN (11:06)
--- NOTE | 2016-06-04 11:19 | PDOC PROGRESS REPORT ---
Subjective Progress Note for:: 06/04/16 Subjective:: Summary of Hospital course: "VON RANGEL is a 89 year old male from home where he lives with his , reportedly having cough, altered mental status, decreased by mouth intake over the past several days. Son went to check on him and found him to be in respiratory distress and called EMS. Room air oxygen saturation was 82% initially responded well to nasal cannula oxygen Upon evaluation in the ED he was diagnosed of right lower lobe pneumonia, sepsis , hypoxemic respiratory failure, and was subsequently admitted to [facility] under hospitalist service." Patient's initial condition improved somewhat but due to the significant hypoxemia on presentation, CTA chest performed and failed to show PE but did confirm bilat, extensive pneumonia. Since admission his condition has declined as he has become combative and quite confused/delirious, calling out for his and wondering why she isn't here to care of him. He continues to believe he is at home and doesn't understand why we keep telling him he is in the hospital. He continued to try to climb out of bed in spite of gentle verbal and physical redirection and IM Haldol dose had no effect. He required a sitter and near constant redirection to keep him in bed and safe from falls and pulling at lifelines and devices. He discontinued his IV site 05/31/2016, unfortunately while vancomycin was infusing resulting in infiltration into the left forearm. Antibiotics were adjusted to either oral or IM dosing temporarily , Ativan added to his regimen 06/01/2016 to allow a PICC line placement with success. Furthermore his leukocytosis is not improving and his cultures do not point toward pathogen. He has received Rocephin and Zithromax since his arrival, vancomycin was added but dosing has been irregular due to the patient's cooperation and intermittent lack of IV access, therefore it's difficult to say what pathogen we might have missed but certainly included MRSA undertreated for the reasons noted above. Other possibilities include drug resistant organisms, Pseudomonas, and fungi. Antibiotic coverage broadened 06/01/2016 to cefepime, Levaquin and continue vancomycin. Diflucan added 06/03/2018 06/02/2016 his condition deteriorated further. He became hemodynamically unstable dropping his blood pressure into the 80s with rising heart rate into the 140s and sustained sinus tachycardia. His mental status was no different, he remains restless, non-cooperative and agitated requiring soft wrist restraints, gloves and additional dose of Ativan. I spoke with his son by telephone at [phone] who confirmed the patient's wishes to be a DO NOT RESUSCITATE, states his father's quality of life has declined rapidly over the recent months and that he would not want aggressive, invasive life-sustaining measures if his condition were to decline further. He is agreeable to continuing antibiotic therapy, IV fluids, vasopressors and even BiPAP support if needed. He does not want the patient transferred to a tertiary care center, which I offered for pulmonology and critical care consult. I suggested perhaps bronchoscopy would be worthwhile but his chances of requiring intubation and mechanical ventilation post procedure were quite high, as a result he does not wish to pursue these measures. Patient is largely now BiPAP dependent due to increased work of breathing. He remains obtunded. ROS: Unable to review due to confusion. Physical Exam Vital Signs: Temp Pulse Resp BP Pulse Ox 97.8 F 95 20 112/67 99 06/04/16 07:51 06/04/16 08:28 06/04/16 08:28 06/04/16 07:51 06/04/16 08:28 Intake & Output 06/03/16 06/04/16 06/05/16 06:59 06:59 06:59 Intake Total 2794 2386 Output Total 1570 2215 Balance 1224 171 Weight 75.5 kg 75.5 kg EXAM GENERAL: Restless; well developed, well nourished; no obese; lethargic and nonverbal; tolerating BiPAP with soft wrist restraints in place HEENT: normocephalic, atraumatic; no conjunctival injection, no scleral icterus ; oral mucosa dry; RESPIRATORY: Continue accessory abdominal muscle use and increased WOB, good air entry bilaterally; no wheezes, rhonchi but persistent rales and inspiratory crackles bilateral anteriorly CARDIO: no JVD; RRR; soft systolic murmur; tachycardia, appears to be sinus GI: soft; nondistended; normal bowel sounds; no hepato spleno megaly; no rebound, rigidity, guarding; no grimace with palpation VASCULAR: no carotid bruit; no abdominal bruit; no pallor; 2+ radial, DP pulse ; normal capillary refill EXTREMITIES: no calf tender; no palpable cords in calf; no clubbing, cyanosis , trace pedal edema PSYCH: Agitated with exam and nursing intervention, will not follow commands SKIN: warm; moist, pale; no petechiae; no telengectasias; no jaundice; no rash MSK: Moves all 4 extremities spontaneously but will not follow commands Results Laboratory Results: 06/04/16 03:50 06/04/16 03:50 06/04/16 06/04/16 06/04/16 03:50 03:50 03:50 WBC 26.7 H RBC 3.74 L Hgb 11.2 L Hct 34.9 L MCV 93 MCH 30.0 MCHC 32.2 RDW 13.5 Plt Count 294 Seg Neutrophils % Not Reportable Lymphocytes % Not Reportable Monocytes % Not Reportable Eosinophils % Not Reportable Basophils % Not Reportable Absolute Neutrophils Not Reportable Absolute Lymphocytes Not Reportable Absolute Monocytes Not Reportable Absolute Eosinophils Not Reportable Absolute Basophils Not Reportable Sodium 135.4 L Potassium 3.6 Chloride 99 Carbon Dioxide 26 Anion Gap 10 BUN 14 Creatinine 0.73 0.73 Est GFR ( Amer) > 60 > 60 Est GFR (Non-Af Amer) > 60 > 60 Glucose 89 Calcium 8.2 L Phosphorus 2.6 Magnesium 2.1 05/29/16 20:30 Blood Blood Culture - Final NO GROWTH IN 5 DAYS Impressions: Chest/Abdomen CTA 05/30/16 00:00 IMPRESSION: 1. Focal airspace disease in the periphery of the right upper lobe most consistent with pneumonia. Follow-up is recommended to ensure resolution. 2. Bibasilar infiltrates most consistent with pneumonia or atelectasis. 3. No pulmonary emboli. Guidance Fluoroscopy 06/01/16 00:00 IMPRESSION: SUCCESSFUL PLACEMENT OF A 5 FR DUAL LUMEN 29 CM PICC IN THE right basilic VEIN. Interventional Vascular Procedure 06/01/16 00:00 IMPRESSION: SUCCESSFUL PLACEMENT OF A 5 FR DUAL LUMEN 29 CM PICC IN THE right basilic VEIN. PICC Line Insertion 06/01/16 08:00 IMPRESSION: SUCCESSFUL PLACEMENT OF A 5 FR DUAL LUMEN 29 CM PICC IN THE right basilic VEIN. Head CT 06/02/16 00:00 IMPRESSION: Very limited study. No acute findings Chest X-Ray 06/04/16 07:00 IMPRESSION: Slight improvement in the right upper lobe. Assessment & Plan - Diagnosis (1) Acute hypoxemic respiratory failure Is this a current diagnosis for this admission?: YesPlan: Worsening pneumonia, continue treatment with quadruple antibiotics; BiPAP for increased work of breathing, supplemental oxygen, nebulizers. (2) Metabolic encephalopathy Is this a current diagnosis for this admission?: YesPlan: Secondary to hypoxia and sepsis, unchanged today. Continue low-dose anxiolytics and add atypical anti-psychotics to control behaviors and mood if needed. CT of the head ruled out intracranial hemorrhage, subacute stroke, etc. but was difficult study due to motion artifact. (3) Pneumonia Qualifiers: Pneumonia type: due to unspecified organism Laterality: bilateral Lung location: unspecified part of lung Qualified Code(s): J18.9 - Pneumonia, unspecified organism Is this a current diagnosis for this admission?: YesPlan: Failed Rocephin and Zithromax 06/02/2016 switched to cefepime Levaquin and continued vancomycin with worsening infiltrate seen on chest x-ray and worsening leukocytosis added Diflucan 06/03/2016. He received 3d of Rocephin and Zithromax. Send for mycoplasma antibodies, EBV titers and screen for influenza A and B. Trend his C-reactive protein and leukocytes. Continue probiotic for C. difficile prophylaxis. PICC line as tolerated for better, consistent IV access. (4) Sepsis Qualifiers: Sepsis type: sepsis due to unspecified organism Qualified Code(s): A41.9 - Sepsis, unspecified organism Is this a current diagnosis for this admission?: YesPlan: Severe with endorgan damage (encephalopathy), shock and tachycardia improved with aggressive fluid resuscitation. continue supportive care, and include vasopressors if needed, and the BiPAP for respiratory distress if needed. Unfortunately he developed some pulmonary edema due to the aggressive fluid resuscitation; will turn his fluids down to KVO and monitor his volume status. (5) Bacteremia Is this a current diagnosis for this admission?: NoPlan: Initial cultures with strep mitis, Repeat cultures negative implying probably a contaminant. (6) Hypokalemia Is this a current diagnosis for this admission?: YesPlan: Replace and monitor (7) Hypophosphatemia Is this a current diagnosis for this admission?: YesPlan: Replace and monitor - Time Time Spent with patient: 25-34 minutes - Plan Summary Plan Summary: Prognosis worsening. Remains at high risk for significant morbidity and mortality due to the severity of his sepsis. No family available to me today so far.
[2016-06-04] MEDS: ENOXAPARIN SODIUM INJ 40 MG/0.4 ML DISP.SYRIN SUBCUT SCH (11:30)
[2016-06-04] MEDS: FLUCONAZOLE 200 MG/NS RTU 100 ML IV SCH (11:45)
[2016-06-04] MEDS ORDERED: ALTEPLASE INJ 2 MG VIAL (CATH CLEARANCE) INJ ONE ×2 (14:00→14:30)
[2016-06-04] MEDS ORDERED: NORMAL SALINE 10 ML SDV (AFTER EACH USE) IV PRN (15:10)
[2016-06-04] MEDS: LEVOFLOXACIN 750 MG/D5W RTU 750 MG/150 ML RTUPB IV SCH (18:50)
[2016-06-04] MEDS: NORMAL SALINE 10 ML SDV (SCHEDULED) IV SCH (21:35)
[2016-06-04] MEDS: LORAZEPAM INJ 2 MG/1 ML VIAL IV PRN (23:08)
[2016-06-05] MEDS: VANCOMYCIN HCL 750 MG in DEXTROSE 5%-WATER 250 ML IV SCH ×4 (01:23→23:29)
[2016-06-05 06:57] LABS: HEMATOCRIT 34.3 % (37.9-51.0); HEMOGLOBIN 11.1 g/dL (13.5-17.0); MEAN CORPUSCULAR HGB CONC 32.4 g/dL (32.0-36.0); MEAN CORPUSCULAR VOLUME 93 fl (80-97); RED CELL DISTRIBUTION WIDTH 13.7 % (11.5-14.0)
[2016-06-05 07:07] LABS: ALANINE AMINOTRANSFERASE 59 U/L (21-72); ALBUMIN 3.1 g/dL (3.5-5.0); ALKALINE PHOSPHATASE 62 U/L (38-126); ANION GAP 9 (5-19); ASPARTATE AMINO TRANSFERASE 64 U/L (17-59); BLOOD UREA NITROGEN 11 mg/dL (7-20); CALCIUM 8.5 mg/dL (8.4-10.2); CARBON DIOXIDE 29 mmol/L (22-30); CHLORIDE 101 mmol/L (98-107); CREATININE RESULT 0.84 mg/dL (0.52-1.25); GLUCOSE 97 mg/dL (75-110); MAGNESIUM 2.2 mg/dL (1.6-2.3); PHOSPHORUS 2.1 mg/dL (2.5-4.5); SODIUM 139.1 mmol/L (137-145); TOTAL PROTEIN 5.5 g/dL (6.3-8.2)
[2016-06-05 07:13] LABS: POTASSIUM 2.9 mmol/L (3.6-5.0)
[2016-06-05 07:46] LABS: BASOPHILS % (MANUAL) 0 % (0-2); EOSINOPHILS % (MANUAL) 2 % (0-6); LYMPHOCYTES % (MANUAL) 8 % (13-45); TOTAL CELLS COUNTED 100
[2016-06-05 07:50] LABS: HYPOCHROMASIA 1+; POLYCHROMASIA SLIGHT; TOXIC GRANULATION SLIGHT
[2016-06-05 07:51] LABS: BURR CELLS SLIGHT; POIKILOCYTOSIS SLIGHT; STOMATOCYTES SLIGHT
[2016-06-05] MEDS: IPRATROPIUM/ALBUTEROL 0.5-2.5 MG/3 ML AMPUL NEB SCH ×4 (08:53→20:15)
[2016-06-05] MEDS: POTASSI CL 20 MEQ/50 ML RIDER 20 MEQ/50 ML RTUPB IV SCH ×2 (10:27→14:54)
[2016-06-05] MEDS: ENOXAPARIN SODIUM INJ 40 MG/0.4 ML DISP.SYRIN SUBCUT SCH (10:29)
[2016-06-05] MEDS: CEFEPIME HCL 2 GM in DEXTROSE 5%-WATER 50 ML IV SCH ×2 (10:33→21:51)
[2016-06-05] MEDS: FLUCONAZOLE 200 MG/NS RTU 100 ML IV SCH (10:33)
[2016-06-05] MEDS: NORMAL SALINE 10 ML SDV (SCHEDULED) IV SCH ×2 (10:34→21:51)
[2016-06-05] MEDS ORDERED: POTASSIUM PHOS,M-BASIC-D-BASIC 15 MMOL in NORMAL SALINE 250 ML IV ONE (11:00)
[2016-06-05] MEDS: LORAZEPAM INJ 2 MG/1 ML VIAL IV PRN (12:44)
[2016-06-05] MEDS: LEVOFLOXACIN 750 MG/D5W RTU 750 MG/150 ML RTUPB IV SCH (17:49)
[2016-06-05 19:21] LABS: PATH REVIEW PATHOLOGIST REVIEWED
[2016-06-05 19:25] LABS: PATH REVIEW PATHOLOGIST REVIEWED
--- NOTE | 2016-06-05 20:09 | PDOC PROGRESS REPORT ---
Subjective Progress Note for:: 06/05/16 Subjective:: Summary of Hospital course: "VON RANGEL is a 89 year old male from home where he lives with his , reportedly having cough, altered mental status, decreased by mouth intake over the past several days. Son went to check on him and found him to be in respiratory distress and called EMS. Room air oxygen saturation was 82% initially responded well to nasal cannula oxygen Upon evaluation in the ED he was diagnosed of right lower lobe pneumonia, sepsis , hypoxemic respiratory failure, and was subsequently admitted to [facility] under hospitalist service." Patient's initial condition improved somewhat but due to the significant hypoxemia on presentation, CTA chest performed and failed to show PE but did confirm bilat, extensive pneumonia. Since admission his condition has declined as he has become combative and quite confused/delirious, calling out for his and wondering why she isn't here to care of him. He continues to believe he is at home and doesn't understand why we keep telling him he is in the hospital. He continued to try to climb out of bed in spite of gentle verbal and physical redirection and IM Haldol dose had no effect. He required a sitter and near constant redirection to keep him in bed and safe from falls and pulling at lifelines and devices. He discontinued his IV site 05/31/2016, unfortunately while vancomycin was infusing resulting in infiltration into the left forearm. Antibiotics were adjusted to either oral or IM dosing temporarily , Ativan added to his regimen 06/01/2016 to allow a PICC line placement with success. Furthermore his leukocytosis is not improving and his cultures do not point toward pathogen. He has received Rocephin and Zithromax since his arrival, vancomycin was added but dosing has been irregular due to the patient's cooperation and intermittent lack of IV access, therefore it's difficult to say what pathogen we might have missed but certainly included MRSA undertreated for the reasons noted above. Other possibilities include drug resistant organisms, Pseudomonas, and fungi. Antibiotic coverage broadened 06/01/2016 to cefepime, Levaquin and continue vancomycin. Diflucan added 06/03/2018 06/02/2016 his condition deteriorated further. He became hemodynamically unstable dropping his blood pressure into the 80s with rising heart rate into the 140s and sustained sinus tachycardia. His mental status was no different, he remains restless, non-cooperative and agitated requiring soft wrist restraints, gloves and additional dose of Ativan. I spoke with his son by telephone at [phone] who confirmed the patient's wishes to be a DO NOT RESUSCITATE, states his father's quality of life has declined rapidly over the recent months and that he would not want aggressive, invasive life-sustaining measures if his condition were to decline further. He is agreeable to continuing antibiotic therapy, IV fluids, vasopressors and even BiPAP support if needed. He does not want the patient transferred to a tertiary care center, which I offered for pulmonology and critical care consult. I suggested perhaps bronchoscopy would be worthwhile but his chances of requiring intubation and mechanical ventilation post procedure were quite high, as a result he does not wish to pursue these measures. Patient weaned off BiPAP but he remains obtunded. ROS: Unable to review due to confusion. Physical Exam Vital Signs: Temp Pulse Resp BP Pulse Ox 97.9 F 97 20 138/75 H 93 06/05/16 15:19 06/05/16 16:00 06/05/16 16:00 06/05/16 15:19 06/05/16 16:00 Intake & Output 06/04/16 06/05/16 06/06/16 06:59 06:59 06:59 Intake Total 2386 960 1570 Output Total 2215 2525 1500 Balance 171 -1565 70 Weight 75.5 kg 72.8 kg EXAM GENERAL: Restless; well developed, well nourished; no obese; lethargic and nonverbal; off BiPAP, only on supplemental O2 with soft wrist restraints in place HEENT: normocephalic, atraumatic; no conjunctival injection, no scleral icterus ; oral mucosa dry; RESPIRATORY: Resolution of abdominal muscle use, good air entry bilaterally; no wheezes, rhonchi but persistent rales and inspiratory crackles bilateral anteriorly CARDIO: no JVD; RRR; soft systolic murmur; tachycardia, appears to be sinus tach GI: soft; nondistended; normal bowel sounds; no hepato spleno megaly; no rebound, rigidity, guarding; no grimace with palpation VASCULAR: no carotid bruit; no abdominal bruit; no pallor; 2+ radial, DP pulse ; normal capillary refill EXTREMITIES: no calf tender; no palpable cords in calf; no clubbing, cyanosis , trace pedal edema PSYCH: Agitated with exam and nursing intervention, will not follow commands SKIN: warm; moist, pale; no petechiae; no telengectasias; no jaundice; no rash MSK: Moves all 4 extremities spontaneously but will not follow commands Results Laboratory Results: 06/05/16 06:35 06/05/16 06:35 06/03/16 06/05/16 06/05/16 04:52 06:35 06:35 WBC 32.7 H* 23.0 H RBC 3.67 L 3.70 L Hgb 11.3 L 11.1 L Hct 34.3 L 34.3 L MCV 94 93 MCH 30.9 30.0 MCHC 33.1 32.4 RDW 13.7 13.7 Plt Count 290 300 Seg Neutrophils % Not Reportable Lymphocytes % Not Reportable Monocytes % Not Reportable Eosinophils % Not Reportable Basophils % Not Reportable Absolute Neutrophils Not Reportable Absolute Lymphocytes Not Reportable Absolute Monocytes Not Reportable Absolute Eosinophils Not Reportable Absolute Basophils Not Reportable Sodium 139.1 Potassium 2.9 L* Chloride 101 Carbon Dioxide 29 Anion Gap 9 BUN 11 Creatinine 0.84 Est GFR ( Amer) > 60 Est GFR (Non-Af Amer) > 60 Glucose 97 Calcium 8.5 Phosphorus 2.1 L Magnesium 2.2 Total Bilirubin 1.0 AST 64 H ALT 59 Alkaline Phosphatase 62 C-Reactive Protein Total Protein 5.5 L Albumin 3.1 L 06/05/16 06:35 WBC RBC Hgb Hct MCV MCH MCHC RDW Plt Count Seg Neutrophils % Lymphocytes % Monocytes % Eosinophils % Basophils % Absolute Neutrophils Absolute Lymphocytes Absolute Monocytes Absolute Eosinophils Absolute Basophils Sodium Potassium Chloride Carbon Dioxide Anion Gap BUN Creatinine Est GFR ( Amer) Est GFR (Non-Af Amer) Glucose Calcium Phosphorus Magnesium Total Bilirubin AST ALT Alkaline Phosphatase C-Reactive Protein 48.3 H Total Protein Albumin 05/30/16 14:55 Blood Blood Culture - Final NO GROWTH IN 5 DAYS Impressions: Chest/Abdomen CTA 05/30/16 00:00 IMPRESSION: 1. Focal airspace disease in the periphery of the right upper lobe most consistent with pneumonia. Follow-up is recommended to ensure resolution. 2. Bibasilar infiltrates most consistent with pneumonia or atelectasis. 3. No pulmonary emboli. Guidance Fluoroscopy 06/01/16 00:00 IMPRESSION: SUCCESSFUL PLACEMENT OF A 5 FR DUAL LUMEN 29 CM PICC IN THE right basilic VEIN. Interventional Vascular Procedure 06/01/16 00:00 IMPRESSION: SUCCESSFUL PLACEMENT OF A 5 FR DUAL LUMEN 29 CM PICC IN THE right basilic VEIN. PICC Line Insertion 06/01/16 08:00 IMPRESSION: SUCCESSFUL PLACEMENT OF A 5 FR DUAL LUMEN 29 CM PICC IN THE right basilic VEIN. Head CT 06/02/16 00:00 IMPRESSION: Very limited study. No acute findings Chest X-Ray 06/05/16 00:00 IMPRESSION: No significant change. Assessment & Plan - Diagnosis (1) Acute hypoxemic respiratory failure Is this a current diagnosis for this admission?: YesPlan: May be slightly improved pneumonia, continue treatment with quadruple antibiotics; BiPAP for increased work of breathing, supplemental oxygen, nebulizers. (2) Metabolic encephalopathy Is this a current diagnosis for this admission?: YesPlan: No improvement. Secondary to hypoxia and sepsis, unchanged today. Continue low -dose anxiolytics and atypical anti-psychotics to control behaviors and mood if needed. CT of head ruled out intracranial hemorrhage, subacute stroke, etc. but was difficult study due to motion artifact. (3) Pneumonia Qualifiers: Pneumonia type: due to unspecified organism Laterality: bilateral Lung location: unspecified part of lung Qualified Code(s): J18.9 - Pneumonia, unspecified organism Is this a current diagnosis for this admission?: YesPlan: Failed 3d Rocephin and Zithromax 06/02/2016 switched to cefepime Levaquin and continued vancomycin with worsening infiltrate seen on chest x-ray and worsening leukocytosis 06/03/2016 so added Diflucan . Send for mycoplasma antibodies, EBV titers and screen for influenza A and B. Trend his C-reactive protein and leukocytes. Continue probiotic for C. difficile prophylaxis. PICC line as tolerated for better, consistent IV access. (4) Sepsis Qualifiers: Sepsis type: sepsis due to unspecified organism Qualified Code(s): A41.9 - Sepsis, unspecified organism Is this a current diagnosis for this admission?: YesPlan: Severe with endorgan damage (encephalopathy), shock and tachycardia improved with aggressive fluid resuscitation. continue supportive care, and include vasopressors if needed, and the BiPAP for respiratory distress if needed. Unfortunately he developed some pulmonary edema due to the aggressive fluid resuscitation; turned his fluids down to KVO to allow for insensible losses and monitor his volume status. (5) Bacteremia Is this a current diagnosis for this admission?: NoPlan: Initial cultures with strep mitis, Repeat cultures negative implying probably a contaminant. (6) Hypokalemia Is this a current diagnosis for this admission?: YesPlan: Replace and monitor (7) Hypophosphatemia Is this a current diagnosis for this admission?: YesPlan: Replace and monitor - Time Time Spent with patient: 35 or more minutes - Plan Summary Plan Summary: His leukocytosis and respiratory status are improving but his mental status not. His son Abhishek is very realistic and likely will move to comfort measures only if he does not improve. Follow-up on labs and chest x-ray in the morning.
[2016-06-06 06:53] LABS: HEMATOCRIT 32.5 % (37.9-51.0); HEMOGLOBIN 10.7 g/dL (13.5-17.0); HGB HCT DIFFERENCE -0.4; MEAN CORPUSCULAR HEMOGLOBIN 30.2 pg (27.0-33.4); MEAN CORPUSCULAR HGB CONC 32.8 g/dL (32.0-36.0); MEAN CORPUSCULAR VOLUME 92 fl (80-97); RED BLOOD COUNT 3.53 10^6/uL (4.35-5.55); RED CELL DISTRIBUTION WIDTH 13.9 % (11.5-14.0); WHITE BLOOD COUNT 22.1 10^3/uL (4.0-10.5)
[2016-06-06 07:06] LABS: BASOPHILS % (MANUAL) 0 % (0-2); EOSINOPHILS % (MANUAL) 2 % (0-6); LYMPHOCYTES % (MANUAL) 9 % (13-45); TOTAL CELLS COUNTED 100
[2016-06-06 07:09] LABS: BURR CELLS SLIGHT; OVALOCYTES SLIGHT; POIKILOCYTOSIS SLIGHT; POLYCHROMASIA SLIGHT; SCHISTOCYTES SLIGHT; TOXIC GRANULATION SLIGHT; TOXIC VACUOLATION PRESENT
[2016-06-06 07:09] LABS: EPSTEIN BARR EARLY AG IGG AB <9.0 U/mL (0.0-8.9)
[2016-06-06 07:10] LABS: ANION GAP 11 (5-19); BLOOD UREA NITROGEN 11 mg/dL (7-20); CALCIUM 8.2 mg/dL (8.4-10.2); CARBON DIOXIDE 31 mmol/L (22-30); CHLORIDE 98 mmol/L (98-107); CREATININE RESULT 0.87 mg/dL (0.52-1.25); GLUCOSE 82 mg/dL (75-110); MAGNESIUM 2.1 mg/dL (1.6-2.3); PHOSPHORUS 3.1 mg/dL (2.5-4.5); POTASSIUM 3.2 mmol/L (3.6-5.0); SODIUM 139.9 mmol/L (137-145)
[2016-06-06 07:58] VITALS: BP 134/79
[2016-06-06 08:44] LABS: EBV EARLY AG AB DIFFUSE 1:20 (Neg:<1:20)
[2016-06-06] MEDS: IPRATROPIUM/ALBUTEROL 0.5-2.5 MG/3 ML AMPUL NEB SCH ×2 (09:56→12:15)
--- NOTE | 2016-06-06 10:39 | Death Summary ---
Summary Date : 06/06/16 Time of :: 10:21 Autopsy: No Resuscitation Status: Do Not Resuscitate - Final Diagnosis (1) Sepsis Is this a current diagnosis for this admission?: Yes (2) Pneumonia Is this a current diagnosis for this admission?: Yes (3) Acute hypoxemic respiratory failure Is this a current diagnosis for this admission?: Yes (4) Metabolic encephalopathy Is this a current diagnosis for this admission?: Yes (5) Hypokalemia Is this a current diagnosis for this admission?: Yes (6) Hypophosphatemia Is this a current diagnosis for this admission?: Yes (7) Bacteremia Is this a current diagnosis for this admission?: Yes Hospital Course:: VON RANGEL is a 89 year old male from home where he lives with his , reportedly having cough, altered mental status, decreased by mouth intake over the past several days. Son went to check on him and found him to be in respiratory distress and called EMS. Room air oxygen saturation was 82% initially responded well to nasal cannula oxygen Upon evaluation in the ED he was diagnosed of right lower lobe pneumonia, sepsis , hypoxemic respiratory failure, and was subsequently admitted to [facility] under hospitalist service. Patient's initial condition improved somewhat but due to the significant hypoxemia on presentation, CTA chest performed and failed to show PE but did confirm bilat, extensive pneumonia. Since admission his condition has declined as he has become combative and quite confused/delirious, calling out for his and wondering why she isn't here to care of him. He continues to believe he is at home and doesn't understand why we keep telling him he is in the hospital. He continued to try to climb out of bed in spite of gentle verbal and physical redirection and IM Haldol dose had no effect. He required a sitter and near constant redirection to keep him in bed and safe from falls and pulling at lifelines and devices. He discontinued his IV site 05/31/2016, unfortunately while vancomycin was infusing resulting in infiltration into the left forearm. Antibiotics were adjusted to either oral or IM dosing temporarily , Ativan added to his regimen 06/01/2016 to allow a PICC line placement with success. Antibiotic coverage broadened 06/01/2016 to cefepime, Levaquin and continue vancomycin. Diflucan added 06/03/2018 06/02/2016 his condition deteriorated further. He became hemodynamically unstable dropping his blood pressure into the 80s with rising heart rate into the 140s and sustained sinus tachycardia. His mental status was no different, he remains restless, non-cooperative and agitated requiring soft wrist restraints, gloves and additional dose of Ativan. Dr. Torrez spoke with his son by telephone at [phone] who confirmed the patient's wishes to be a DO NOT RESUSCITATE, states his father's quality of life has declined rapidly over the recent months and that he would not want aggressive, invasive life-sustaining measures if his condition were to decline further. He is agreeable to continuing antibiotic therapy, IV fluids, vasopressors and even BiPAP support if needed. He does not want the patient transferred to a tertiary care center, which Dr. Torrez offered for pulmonology and critical care consult. Dr. Torrez suggested perhaps bronchoscopy would be worthwhile but his chances of requiring intubation and mechanical ventilation post procedure were quite high, as a result he does not wish to pursue these measures. Per nursing staff, patient was being bathed when he stopped breathing, patient was placed on BiPap, but patient had . Patient pronounced by two RNs at 1021. Family notified and no autopsy was requested.
== END 2016-06-06 10:21 | DRG 871 ==
LOC: ER 14:04 → EH 17:12 → UNDOADMIN 18:40 → EH 18:40 → 3N 05-30 13:37 → EH 06-02 12:29 → 3W 06-04 03:00
PROVIDERS: ADMIT Family Medicine; ATTEND Family Medicine
PROC: 02HV33Z Insertion of Infusion Device into Superior Vena Cava, Percutaneous Approach (ICD-10-PCS; principal; 2016-06-01)
PROC: B518ZZA Fluoroscopy of Superior Vena Cava, Guidance (ICD-10-PCS; 2016-06-01)
DX: A41.9 Sepsis, unspecified organism (principal); J18.9 Pneumonia, unspecified organism; J96.01 Acute respiratory failure with hypoxia; G93.41 Metabolic encephalopathy; E87.6 Hypokalemia; E83.39 Other disorders of phosphorus metabolism; E03.9 Hypothyroidism, unspecified; F32.9 Major depressive disorder, single episode, unspecified; Z66 Do not resuscitate; Z87.891 Personal history of nicotine dependence; Z79.899 Other long term (current) drug therapy
CPT/HCPCS: 36415; 36569; 70450; 71010; 71275; 76937; 77001; 80048; 80053; 80202; 81001; 82140; 82550; 82553; 82565; 82607; 82803; 82962; 83605; 83735; 84100; 84443; 84484; 85025; 85027; 85610; 86140; 86256; 86663; 86664; 86665; 87040; 87077; 87086; 87186; 87804; 93005; 93010; 94640; 94660; J0456; J0692; J0696; J1450; J1630; J1642; J1650; J1956; J2060; J2997; J3370; J3480; J3490; J7030; J7040; J7050; J7060; J7620